=== PATIENT | female | born 1965 | race Caucasian/White ===

== ENCOUNTER 2018-12-15 12:17 | Emergency (ER) | payer OTHER, SELFPAY ==
[2018-12-15 12:17] VITALS: BP 179/48; PULSE 55; RESP 16; TEMP 36.8; O2SAT 97; BMI 38.5
--- NOTE | 2018-12-15 12:26 | CT_ITS ---
STUDY: CT ABDOMEN AND PELVIS WITH CONTRAST REASON FOR EXAM: Female, 53 years old. 2 week history of constipation and abdominal bloating. RADIATION DOSAGE (If Supplied By Facility): CTDIvol = ( 14.27 ) mGy, DLP = ( 1112.35 ) mGycm TECHNIQUE: Transaxial images were obtained from the dome of the diaphragm to the symphysis pubis with oral contrast. 100 IV/Oral Isovue 370 was administered. Sagittal and coronal images were reconstructed. Individualized dose optimization techniques were used for this CT. COMPARISON: None. FINDINGS: The visualized lung bases are unremarkable. The visualized portions of the heart are within normal limits. Normal liver. Normal gallbladder and extrahepatic biliary system. Normal spleen. Normal pancreas. Normal bilateral adrenal glands. Normal right kidney. Normal left kidney. Normal visualized stomach. Normal small intestine. Moderate amount of fecal material is seen in the colon. Scattered sigmoid diverticula. The appendix is visualized and appears normal. Normal abdominal aorta. Normal inferior vena cava. There is borderline retroperitoneal lymphadenopathy with enlarged nodes no greater than 10mm in the short axis diameter. Normal urinary bladder. Enlarged fibroid uterus. Small bilateral benign-appearing inguinal lymph nodes. Normal abdominal wall. Normal osseous structures. CT/Abdomen/Pelvis WITH Contrast IMPRESSION: Enlarged fibroid uterus. Moderate amount of fecal material is seen in the colon. Electronically Signed: Noe Lainez, at 14:38 EDT , Service support ,
--- NOTE | 2018-12-15 12:30 | ED.DCSUM_ITS ---
- ER Visit Summary Date of Service: 12/15/18 Chief Complaint: Constipation History of Present Illness: The patient is a 53 F presents to the emergency department constipation. The patient states she has not had a bowel movement about 2 weeks. She states that her stool was hard last time she moved her robert ls. She has tried MiraLAX and magnesium citrate. She denies any current pain. She states she gets the urge to move her bowels, and will get some cramping. She is noticed no blood. She had no prior surgeries on her abdomen. She is otherwise been in her normal state of health. Physical Examination: Vital signs reviewed General: Well-nourished, well-developed Head: Normocephalic, atraumatic Eyes: Pupils equal and reactive, extraocular muscles intact Neck, supple, no lymphadenopathy Heart: Regular rate and rhythm Respiratory: No distress, clear bilaterally Abdomen: Soft, nontender, nondistended, no peritoneal signs Back: Nontender Extremities: Nontender, no edema, no cords Skin: Normal color no rash Neuro: Alert and oriented, no focal or lateralizing deficits Test Results: [] Emergency Department Course and Treatment: The patient really has no significant abdominal tenderness. However, given her symptoms I did want to rule out dangerous intra-abdominal process. Screening labs show anemia which is mild. Otherwise labs are unremarkable. CT shows large stool burden, along with fibroid uterus, but no acute intra-abdominal process conversation with the patient. She was given a soapsuds enema. She had significant results and was feeling markedly improved. She will continue her MiraLAX. I will add Colace. At this time, I do feel that she is safe for outpatient follow-up. The patient is comfortable with this plan of care. Treatment Plan: [] Disposition: Discharge Impression: 1. Constipation This note was generated with Ingogoation software. It may contain incorrect words, spelling, and punctuation that were not noted in review of the chart prior to signing ED Disposition - Plan for ED Patient: Instructions: ED Constipation Prescriptions: Docusate Sodium [Colace] 100 mg PO DAILY #20 cap Referrals: [facility] Doctor,Out of [NON-STAFF] -
[2018-12-15] MEDS: 0.9% Normal Saline 1,000 ML 1000 ML IV (12:42)
[2018-12-15 12:46] LABS: Mucous, Urine 0 SEEN /hpf (<or=2+); Red Blood Cells-Urine 0 SEEN /hpf (0-5)
[2018-12-15 12:49] LABS: Color, Urine Yellow (Yellow); Glucose, Dipstick Normal (Normal); Ketone-Dipstick Negative (Negative); Leukocyte Esterase-Dipstick Negative /ul (Negative); Nitrite-Dipstick Negative (Negative); Occult Blood-Urine Negative /ul (Negative); Protein-Dipstick Negative (Negative); Urine Bilirubin Dipstick Negative (Negative); Urine Clarity Clear (Clear); Urine Urobilinogen Normal (Normal)
[2018-12-15 12:50] LABS: Absolute Lymphocyte Count 2.25 X10^3/ul (0.83-4.51); Absolute Neutrophil Count 2.2 X10^3/uL (2.0-7.7); Basophil# 0.09 X10^3/uL; Basophil% 1.7 % (0-1); Eosinophil# 0.07 X10^3/uL; Eosinophils% 1.3 % (0-5); Hematocrit 32.4 % (37-47); Hemoglobin 10.2 g/dl (12.0-15.0); Lymphocyte # 2.25 X10^3/ul (4.0); Lymphocyte % 43.4 % (19-41); Mean Corp Hgb Conc 31.5 g/gl (32-36); Mean Corpuscular Hgb 24.8 pg (27.0-32.0); Mean Corpuscular Volume 78.8 fL (81-99); Monocyte# 0.56 X10^3/uL; Monocyte% 10.8 % (0-10); Neutrophil # 2.22 X10^3/uL (2.7-7.7); Neutrophil % 42.8 % (47-70); POSITIVE COUNT NO; POSITIVE DIFFERENTIAL NO; POSITIVE MORPHOLOGY NO; Platelet Count 220 K/mm3 (150-450); RBC Distribution Width CV 15.5 % (11.6-14.6); RBC Distribution Width SD 44.5 fl (35.1-43.9); Red Blood Count 4.11 M/mm3 (4.2-5.4); White Blood Count 5.2 K/mm3 (4.4-11.0)
[2018-12-15 12:58] LABS: White Blood Cells 0-5 SEEN /hpf (0-5)
[2018-12-15 12:59] LABS: Bacteria RARE /hpf (None Seen); Squamous Epithelial Cells - UA 5-10 SEEN /hpf (5-10)
[2018-12-15 13:02] LABS: ALB/GLOB Ratio 1.1 RATIO (0.9-2.4); AST(SGOT) 13 U/L (15-37); Alanine Aminotransfer ALT/SGPT 18 U/L (13-56); Albumin, Serum 3.9 g/dL (3.2-5.0); Alkaline Phosphatase 80 U/L (45-117); Anion Gap 6 (5-15); BUN 16 mg/dL (7-18); BUN/Creat Ratio 20.7 RATIO (10-20); Calcium,Total 8.9 mg/dL (8.5-10.1); Chloride 104 mmol/L (98-107); Creatinine, Serum 0.77 mg/dL (0.55-1.02); EST Glomerular Filtration Rate 82 mL/min (>60); Est Glom Filt Rate - Afr Amer 99 mL/min (>60); Estimated Creatinine Clearance 74.28 ml/min; Globulin 3.6 g/dL (2.2-4.2); Glucose 94 mg/dL (74-106); Protein, Total 7.5 g/dL (6.4-8.2); Sodium Level 139 mmol/L (136-145)
[2018-12-15 15:44] VITALS: RESP 18
== END 2018-12-15 15:50 | disposition home or self-care (01) ==
LOC: ED 13:09
PROVIDERS: Emergency Provider Emergency Medicine; Family Provider Family Medicine; PCP Family Medicine
DX: K59.00 Constipation, unspecified (principal); R10.9 Unspecified abdominal pain
CPT/HCPCS: 74177; 80053; 81001; 85025; 96360; 99285; J7030; Q9967; A4216

== ENCOUNTER → 2019-03-09 | Outpatient (CLI) | payer OTHER, SELFPAY ==
--- NOTE | 2019-03-09 07:19 | MRI_ITS ---
STUDY: MRI RIGHT KNEE REASON FOR EXAM: Female, 54 years old. Right knee sprain. Medial pain. TECHNIQUE: Standardized fat and water weighted pulse sequences were obtained in all 3 orthogonal planes. COMPARISON: None. FINDINGS: Grade 2 cartilage loss at the patellofemoral articulation. Lateral compartment articular cartilage preserved. Medial compartment grade 4 cartilage loss. No acute fracture line. No dislocation. No cortical destruction. Medial meniscal degeneration without discrete tear. Lateral meniscus intact. Low-grade medial collateral ligament sprain with fluid between the superficial and deep fibers. Small volume joint effusion. Short medial patellofemoral plica. Tiny collapsed popliteal cyst. Mild soft tissue swelling. Deep infrapatellar bursitis. Redundant suprapatellar plica. Normal distal semimembranosus, gracilis and semitendinosus tendons. Normal proximal tibiofibular articulation. Normal lateral collateral (fibular) ligament. Normal popliteus tendon. Normal biceps femoris tendon. Intact anterior cruciate ligament (ACL). Intact posterior cruciate ligament (PCL). Normal medial and lateral patellar retinaculum. Intact quadriceps tendon. Intact patellar tendon. Normal Hoffa's fat pad. MRI/Lower Ext Joint Only (Routine) IMPRESSION: Low-grade MCL sprain without tear Medial compartment severe cartilage loss Patellofemoral articulation mild cartilage loss Medial meniscal degeneration without tear Deep infrapatellar bursitis Small joint effusion, tiny collapsed popliteal cyst and mild soft tissue swelling Electronically Signed: Reilly Baumann DO at 8:36 EDT Tel , Service support ,
== END | disposition home or self-care (01) ==
PROVIDERS: Family Provider Family Medicine; PCP Family Medicine; Referring Provider Emergency Medicine; Visit Provider Emergency Medicine
DX: S83.91XA Sprain of unspecified site of right knee, initial encounter (principal)
CPT/HCPCS: 73721

== ENCOUNTER 2021-10-26 10:49 | Day surgery (SDC) | payer OTHER, SELFPAY ==
--- NOTE | 2021-10-25 09:21 | PCM.HP.BLA ---
History and Physical Date of Admission: 10/26/21 HPI: The patient is a 56 year old female presenting for pre-operative visit. She is scheduled for hysteroscopy D&C with possible polypetom, for AUB on 10/26/21. Procedure discussed along with risks, benefits and complications. Other alternatives discussed for management. Consent form signed? Yes. ? ? PAST MEDICAL HISTORY PAST MEDICAL HISTORY Diagnosis Date ? Carcinoma in situ of cervix uteri 1991 ? Dysplasia of cervix, unspecified 1985 ? Excessive or frequent menstruation ? ? Heavy periods ? Hyperthyroidism ? ? Melanoma of left posterior calf (HCC) ? ? MRSA (methicillin resistant staph aureus) culture positive ? ? Obesity (BMI 35.0-39.9 without comorbidity) ? ? Seasonal allergies ? ? Snoring ? ? ? PAST SURGICAL HISTORY PAST SURGICAL HISTORY Procedure Laterality Date ? COLONOSCOPY FLX DX W/COLLJ SPEC WHEN PFRMD ? 03/12/2016 ? repeat 10 yrs ? CONIZATION CERVIX W/WO D&C RPR ELTRD EXC ? 1991 ? LEEP-Cervix FOR CIS ? LYMPH NODE FINE NEEDLE ASPIRATION ? ? ? right groin ? SKIN BX, 1 LESION Right ? ? right calf melanoma ? TONSILLECTOMY PRIMARY/SECONDARY <AGE 12 ? ? ? Tonsillectomy ? ? ? CURRENT MEDICATIONS Current Outpatient Medications Medication Sig Dispense Refill ? levothyroxine (SYNTHROID) 50 mcg tablet Take 1 tablet by mouth once daily. Take on empty stomach. For thyroid. 90 tablet 3 ? ferrous sulfate 325 mg (65 mg iron) tablet Take 1 tablet by mouth daily with breakfast. ? ? ? fluticasone propionate (FLONASE NASAL) Use in the nose. ? ? ? cetirizine HCl (ZYRTEC ORAL) Take by mouth. ? ? ? IBUPROFEN 600 MG TAB Take one(1) tablet every six(6) hours as needed for pain. ? 0 ? OTC NUTRITIONAL SUPPLEMENT Multi-Vitamin, Take one(1) tablet daily. ? 0 ? No current facility-administered medications for this visit. ? ? ALLERGIES: Hayfever [Homeopathic Products] ? PERSONAL HISTORY: SOCIAL HISTORY Social History ? Tobacco Use ? Smoking status: Never Smoker ? Smokeless tobacco: Never Used Vaping Use ? Vaping Use: Never used Substance Use Topics ? Alcohol use: Yes ? ? Comment: rarely ? Drug use: No ? FAMILY HISTORY: FAMILY HISTORY FAMILY HISTORY Problem Relation Age of Onset ? Cancer Mother ? ? lung ? Heart Father ? ? Heart Maternal Aunt ? ? pacemaker ? ? REVIEW OF SYMPTOMS: GENERAL: denies fevers or chills ENDOCRINOLOGY: has not been on steroids Cardiology : denies palpitations or chest pain Respiratory: denies SOB or cough Hematology: denies history of prolonged bleeding or easy bruising or VTE Allergy: Denies history of personal or family history of allergy to anesthesia ? PHYSICAL EXAMINATION: ? VITALS: Blood pressure 136/74, height 5' 5 (1.651 m), weight 250 lb (113.4 kg), last menstrual period 08/15/2021. ? GENERAL: The patient is well nourished, well hydrated in no acute distress. , The patient is oriented to time, place, and person. NECK: Supple. No lynphadenopathy, normal thyroid, no thyromegaly. LUNGS: Clear to auscultation bilaterally. no wheezes, rhonchi or rales HEART: Regular rate and rhythm, Normal heart sounds and No murmurs or gallops ? IMPRESSION: AUB, possible endometrial polyp ? PLAN: The risks/benefits/alternatives and personal involved for the planned hsyteroscopy D&C with polyp resection were reviewed with the patient. Her questions were answered to her satisfaction and she desires to proceed. Consent was signed. I reviewed with her postop instructions and expectations. ? ? I have reviewed and updated past medical and surgical history, medications and allergies Assessment & Plan Assessment/Plan (1) Abnormal uterine bleeding (AUB):
[2021-10-26] VITALS (8 sets, daily range): BP systolic 101–124; BP diastolic 52–70; PULSE 45–62; RESP 16–18; TEMP 35.5–36.6; O2SAT 94–100; BMI 40.9
[2021-10-26 11:26] LABS: Hematocrit 35.6 % (37-47); Hemoglobin 11.4 g/dL (12.0-15.0); Mean Corpuscular Hgb 27.6 pg (27.0-32.0); Mean Corpuscular Volume 86.2 fL (81-99); Mean Platelet Vol. 9.3 fl (6.2-12.0); Platelet Count 228 K/mm3 (150-450); RBC Distribution Width CV 13.1 % (11.6-14.6); RBC Distribution Width SD 41.1 fl (35.1-43.9); Red Blood Count 4.13 M/mm3 (4.2-5.4); White Blood Count 4.8 K/mm3 (4.4-11.0)
[2021-10-26 11:29] LABS: Internal QC Validated? YES +Cl - CLEAR BKGD; Pregnancy, Urine Negative Negative
[2021-10-26] MEDS: Lactated Ringers 1,000 ML 15 ML IV (11:33)
[2021-10-26] MEDS: Acetaminophen 500 MG Tablet 1000 MG PO (11:34)
[2021-10-26] MEDS: Ketorolac 30 MG/ML Syringe IV (11:34)
[2021-10-26 12:15] LABS: ALB/GLOB Ratio 1.1 RATIO (0.9-2.4); AST(SGOT) 19 U/L (15-37); Alanine Aminotransfer ALT/SGPT 29 U/L (13-56); Albumin, Serum 4.1 g/dL (3.2-5.0); Alkaline Phosphatase 80 U/L (45-117); Anion Gap 6 (5-15); BUN 18 mg/dL (7-18); BUN/Creat Ratio 23.9 RATIO (10-20); Calcium,Total 9.5 mg/dL (8.5-10.1); Chloride 106 mmol/L (98-107); Creatinine, Serum 0.75 mg/dL (0.55-1.02); EST Glomerular Filtration Rate 84 mL/min (>60); Est Glom Filt Rate - Afr Amer 101 mL/min (>60); Estimated Creatinine Clearance 73.57 ml/min; Globulin 3.6 g/dL (2.2-4.2); Glucose 97 mg/dL (74-106); Potassium 4.1 mmol/L (3.5-5.1); Protein, Total 7.7 g/dL (6.4-8.2); Sodium Level 140 mmol/L (136-145)
--- NOTE | 2021-10-26 12:20 | PCM.DC ---
Discharge Instructions Diet Discharge Diet: No restrictions Activity May resume sexual activity in: 2 weeks Lifting Restrictions: none Dressing / Incision Call your doctor if your incision/area has: Sudden Increased Bleeding and Foul Smelling Discharge Call your doctor if you observe: Fever of 101 or Higher and Using more than 1 pad per hour (for 2 hrs in a row) Follow Up Care Please Follow Up With: Estelita Ross MD When: 2-4 weeks or as needed. Call [phone] to make an appointment or with any concerns. Test Results: Test results from this visit will be discussed in further detail at your follow-up appointment, if applicable. Discharge Plan Admission Primary Reason for Your Visit: D&C Attending Provider: Estelita Ross Primary Care Provider: Kevin Swanson Discharge Orders/Prescriptions Prescriptions: Continued Zyrtec 10 MG capsule 1 tab PO DAILY RF: 0 levothyroxine 50 mcg Tablet 50 mcg PO DAILY RF: 0 ferrous sulfate [iron] 325 mg (65 mg iron) Tablet 325 mg PO DAILY RF: 0 multivitamin Capsule 1 cap PO DAILY RF: 0 fluticasone propionate [Flonase Allergy Relief] 50 mcg/actuation [place],Suspension 1 spray INTRANASAL PRN PRN (Reason: ALLERGIES) RF: 0 Referrals / Follow Up: Kevin Swanson MD [Primary Care Provider] - Disposition Disposition (needs filled in before D/C Order can be placed): Home, Self Care
--- NOTE | 2021-10-26 12:25 | EMB_PTH ---
PATIENT: SHAUNA [place] [facility] [id number] AGE/SX: 56/F ROOM: RE10/26/[address]: Dr. Estelita Ross MD : 1965 BED: DIS: 10/26/2021 SPEC #: [id number] RECD: 10/26/21 16:34 STATUS: KARINA REZA #: [id number] JOSH: 10/26/21 12:[address]: Estelita Ross DEPT: SURGICAL PATHOLOGY RECD BY: Tia Pierson ENTERED: 10/27/21 08:37 SP TYPE: ENDOM BX/C OTHR DR: Dr. Kevin Swanson MD Tissues: Endometrium, NOS Procedures: Surgery Specimen Level IV HEADER OPERATION: Hysteroscopy, D&C, Polypectomy PRE-OP DIAGNOSIS: Abnormal uterine bleeding TISSUE SUBMITTED: Endometrial curettings and polyps MICROSCOPIC DIAGNOSIS Endometrial curettings and polyps: Polypoid fragments of endometrial tissue, may represent fragments of endometrial polyp with simple cystic endometrial hyperplasia without atypia. Fragments of myometrial tissue. COMMENT Case has been reviewed in consultation with Dr. Lawson who concurs with the above diagnosis. IDC:AM MICROSCOPIC DESCRIPTION Slides are reviewed. GROSS DESCRIPTION Received in formalin is one container labeled with the patient name and designated endometrial curettings and polyps. The specimen consists of multiple irregular fragments of britton soft tissue measuring in aggregate 5 x 3 x 0.3 cm. The specimen is totally submitted in two cassettes. / SJ 10/30/2021 TC:5 CPT: 69708
--- NOTE | 2021-10-26 12:44 | PCM.OPRPT ---
Problems Associated Problem List Diagnoses (1) Abnormal uterine bleeding (AUB): (2) Endometrial polyp: Report of Operation Date of Procedure: 10/26/21 Pre-Operative Diagnosis: abnormal uterine bleeding Post-Operative Diagnosis: same + endometrial polyp Surgery/Procedure Performed:: Hysteroscopy D&C with polyp resection Description of Surgical Findings:: normal cervix and vagina. Uterus w/ endometrial polyp at fundus and some submucous fibroids Surgeon: Estelita Ross manager transportation planning: None Type of Anesthesia: MAC Anesthesiologist: Sanya Espinosa Special Medications: none Specimen's removed: endometrial polyp and curettings Drains: none Estimated Blood Loss (mL): 10 Fluids Replaced: 400 Description of Procedure: The patient was taken to the OR where she was prepped and draped in dorsal lithotomy position. The weighted speculum was placed in the vagina and the anterior lip of the cervix was grasped with a single-tooth tenaculum. The cervix was dilated serially with Hegar dilators. The Smphion hysteroscope was placed into the uterine cavity and the above findings were noted. Bilateral tubal ostia [were] identified. The SYmphion resectio device was inserted and readied. The polyp was resected, a visual curettage of the endometrium was performed. Partial resection of the submucosal is fibroids was performed to make the uterine cavity appeared more normal. 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 The instruments were removed from the vagina. The specimen was handed off and sent to pathology. All sponge and needle counts were correct. Vaginal sweep was performed by me. The patient was awakened and taken to the recovery room in stable condition. Hysteroscopic fluid deficit was calculated to be 450 cc of normal saline Grafts/Implants Used: none Procedure Start Time: 12:36 Procedure Stop Time: 12:43 Complications none Admit VTE Documentation VTE Present on Admission: No VTE Mechan Device Prophylaxis: SCD's VTE Pharm Prophylaxis ordered?: No Reason prophylaxis not ordered:: Procedure Not Indicated
== END 2021-10-26 13:40 | disposition home or self-care (01) ==
LOC: SDC 10:54 → AC 10:55
PROVIDERS: Anesthesiology; PCP Family Medicine; Referring Provider Obstetrics & Gynecology; Visit Provider Obstetrics & Gynecology
PROC: 0UB98ZZ Excision of Uterus, Via Natural or Artificial Opening Endoscopic (ICD-10-PCS; CPT 58558; principal; 2021-10-26 12:10)
DX: N85.01 Benign endometrial hyperplasia (principal); Z68.41 Body mass index [BMI] 40.0-44.9, adult; C80.1 Malignant (primary) neoplasm, unspecified; Q51.3 Bicornate uterus; D25.0 Submucous leiomyoma of uterus; N93.9 Abnormal uterine and vaginal bleeding, unspecified; E07.9 Disorder of thyroid, unspecified; E61.1 Iron deficiency; E66.9 Obesity, unspecified; J30.2 Other seasonal allergic rhinitis; Z86.16 Personal history of COVID-19; Z79.899 Other long term (current) drug therapy
CPT/HCPCS: 58558; 00952; 80053; 81025; 85027; 86850; 86900; 86901; 88305; J7120; J2405

== ENCOUNTER → 2021-11-08 | Outpatient (CLI) | payer OTHER, SELFPAY ==
--- NOTE | 2021-11-08 09:00 | PET_ITS ---
STUDY: PET/CT STUDY REASON FOR EXAM: Female, 56 years old. MELANOMA RADIATION DOSAGE (If Supplied By Facility): CTDIvol = ( ) mGy, DLP = ( ) mGycm. Individualized dose optimization techniques were used for this CT.? TECHNIQUE: Patient''s blood GLUCOSE level measured at 109, was injected with 12.7 mCi of F-18 FDG. Multiplanar PET study obtained along with noncontrasted CT COMPARISON: No recent studies FINDINGS: No abnormal GLUCOSE metabolism is identified on current study to suspect a metabolically active neoplastic process. There is physiologic activity noted within the brain parenchyma, salivary glands, heart, liver, spleen, GI and systems. Noncontrasted CT scan shows no abnormality within the brain parenchyma. No suspicious adenopathy within the soft tissues of the neck, no airway narrowing or deviation. Lung thomas are free of a superimposed process, no suspicious noncalcified mass or nodule noted. No suspicious solid organomegaly, no abnormal mesenteric or retroperitoneal adenopathy. Bony structures show degenerative change PET/PET/CT Tumor Base -Thigh Init IMPRESSION: Negative study, no suspicious increased GLUCOSE metabolism to suspect metabolically active neoplastic process Electronically Signed: Emiliano Miller MD at 16:39 EDT ,
== END | disposition home or self-care (01) ==
LOC: ONC 08:44
PROVIDERS: PCP Family Medicine; Referring Provider Internal Medicine Hematology & Oncology; Visit Provider Internal Medicine Hematology & Oncology
DX: C43.9 Malignant melanoma of skin, unspecified (principal); C77.4 Secondary and unspecified malignant neoplasm of inguinal and lower limb lymph nodes
CPT/HCPCS: 78815; A9588

== ENCOUNTER → 2021-12-18 | Outpatient (CLI) | payer OTHER, SELFPAY ==
[2021-12-18 14:06] LABS: ALB/GLOB Ratio 1.2 RATIO (0.9-2.4); AST(SGOT) 18 U/L (15-37); Alanine Aminotransfer ALT/SGPT 30 U/L (13-56); Albumin, Serum 4.1 g/dL (3.2-5.0); Alkaline Phosphatase 84 U/L (45-117); Anion Gap 7 (5-15); BUN 16 mg/dL (7-18); BUN/Creat Ratio 20.1 RATIO (10-20); Calcium,Total 9.3 mg/dL (8.5-10.1); Chloride 107 mmol/L (98-107); EST Glomerular Filtration Rate 79 mL/min (>60); Est Glom Filt Rate - Afr Amer 95 mL/min (>60); Globulin 3.4 g/dL (2.2-4.2); Glucose 101 mg/dL (74-106); Potassium 3.9 mmol/L (3.5-5.1); Protein, Total 7.5 g/dL (6.4-8.2); Sodium Level 140 mmol/L (136-145)
== END | disposition home or self-care (01) ==
PROVIDERS: PCP Family Medicine; Referring Provider Internal Medicine Hematology & Oncology; Visit Provider Internal Medicine Hematology & Oncology
DX: C43.71 Malignant melanoma of right lower limb, including hip (principal); C77.4 Secondary and unspecified malignant neoplasm of inguinal and lower limb lymph nodes
CPT/HCPCS: 80053

== ENCOUNTER 2022-04-10 10:21 | Inpatient (IN) | payer OTHER, SELFPAY ==
[2022-04-10 10:23] VITALS: BP 132/87; PULSE 97; RESP 18; TEMP 36.6; O2SAT 100; BMI 38.1
--- NOTE | 2022-04-10 10:44 | EDS_ITS ---
HPI HPI - GI History of Present Illness Chief Complaint: Abd Pain Informant: patient Abdominal Pain/Flank Pain Onset: Weeks (1) Context: Gradual Onset Timing: Intermittent Quality: Sharp Location: Diffuse Worsened by: Nothing Relieved by: Nothing Nausea/Vomiting/Emesis GI Symptom: Positive for Nausea and Vomiting Onset: Weeks (1) Quality: Positive for Nonbilious; Negative for Blood streaks, Coffee ground or Hematemesis Diarrhea/Melena/Hematochezia GI Symptom: Negative for Diarrhea, Melena or Hematochezia Associated Symptoms Associated Symptoms: Negative for Dysuria, Frequency or Hematuria Narrative Narrative: Patient Zentz with nausea and vomiting that has been constant for the past week. Patient states she is vomiting up stomach contents. Patient denies any hematemesis or coffee-ground emesis. Patient denies any diarrhea, melena, or he matochezia. Patient denies any dysuria, frequency, or hematuria. Patient admits to some diffuse abdominal pain. Patient states it comes and goes. Patient states it is sharp. Patient states nothing makes it better and nothing makes it worse. Patient states she saw her primary care physician yesterday who prescribed nausea medication. Patient states that she is still unable to keep anything down even with that. Patient is concerned about dehydration. [facility] Medical History Alcohol use Cancer Injury of back Low iron Non-smoker Thyroid disease Home Medications cetirizine 10 mg capsule (Zyrtec) 1 tab PO DAILY 12/15/18 [History Last Taken Unknown] ferrous sulfate 325 mg (65 mg iron) tablet (iron) 325 mg PO DAILY 10/24/21 [History Last Taken Unknown] fluticasone propionate 50 mcg/actuation nasal spray,suspension (Flonase Allergy Relief) 1 spray intranasal PRN PRN ALLERGIES 10/24/21 [History Last Taken Unknown] levothyroxine 50 mcg tablet 50 mcg PO DAILY 10/24/21 [History Last Taken 10/26/21] multivitamin 1 cap PO DAILY 10/24/21 [History Last Taken Unknown] Allergy/AdvReac Type Severity Reaction Status Date / Time Environmental Allergies: AdvReac Other Verified 04/10/22 10:25 Uncoded [hay fever] Surgical History Hx of colonoscopy Hx of melanoma excision Hx of tonsillectomy Social History Smoking Status: Never smoker ROS ROS ED Constitutional Constitutional ED: Reports fever(s); Denies chills Eyes Eyes: Denies blurry vision or change in vision ENT ENT ED: Reports rhinorrhea; Denies sore throat Cardiovascular Cardiovascular: Denies chest pain or palpitations Respiratory/Chest Respiratory/Chest: Denies cough or dyspnea Gastrointestinal Gastrointestinal: Reports abdominal pain, nausea and vomiting Genitourinary Genitourinary ED: Denies dysuria or hematuria Musculoskeletal Musculoskeletal: Reports back pain; Denies neck pain Integumentary Denies abscess or rash Neurologic Neurologic: Denies headache(s) or weakness Allergic/Immunologic Allergic/Immunologic ED: Denies mouth swelling or urticaria EXAM Physical Exam Const Vital Signs: 04/10/22 10:23 Temperature 98 F Temperature Source Temporal Pulse Rate 97 Respiratory Rate 18 Blood Pressure 132/87 H Blood Pressure Mean 102 Pulse Ox 100 Oxygen Delivery Method Room Air Positive well nourished and well developed General Appearance ED: well developed HEENT Reports moist mucous membranes Neck supple and no JVD Resp normal respiratory effort and clear to auscultation bilaterally Cardio regular rate, regular rhythm and no murmurs GI normal to inspection, nondistended, normoactive bowel sounds and non-tender Palpation: soft; Negative for tender, guarding or rebound tenderness present Extremity normal to inspection General Extremety ED: Negative for edema or tenderness General Extremity: Negative for edema Neuro oriented x3, CN's II-XII intact bilaterally and no sensory deficits noted Sensorium / Orientation: alert Motor Exam: strength 5/5 throughout Psych mental status grossly normal Skin no rashes or lesions noted MDM MDM MDM Narrative Medical decision making narrative: Patient was given IV fluids and Zofran. CBC was within normal limits. Comprehensive metabolic profile showed a slightly elevated creatinine of 1.3 and a BUN of 22. Glucose was normal. Lipase was elevated at 4203. Patient was advised of her findings. Case was discussed with the hospitalist. He will admit the patient to his service. CT scan of the abdomen pelvis was ordered to rule out any pseudocyst of her pancreas. Patient declines any pain medication at this time. Patient understands and is agreeable with the plan. All questions were answered. Lab Data Attestation: I reviewed the patient's lab results. Labs: Laboratory Results - last 24 hr 04/10/22 04/10/22 10:55 10:55 WBC 7.5 RBC 4.75 Hgb 13.6 Hct 39.8 MCV 83.8 MCH 28.6 MCHC 34.2 RDW Std Deviation 44.1 H RDW Coeff of Shailesh 14.6 Plt Count 222 MPV 9.2 Immature Gran % (Auto) 0.300 Neut % (Auto) 50.7 Lymph % (Auto) 34.0 [place] % (Auto) 12.6 H Eos % (Auto) 1.5 Baso % (Auto) 0.9 Absolute Neuts (auto) 3.8 Absolute Lymphs (auto) 2.53 Nucleated RBC % 0 Sodium 132 L Potassium 4.6 Chloride 100 Carbon Dioxide 25.0 Anion Gap 7 BUN 22 H Creatinine 1.30 H Estim Creat Clear Calc 41.93 Est GFR (MDRD) Af Amer 54 L Est GFR (MDRD) Non-Af 45 L BUN/Creatinine Ratio 16.9 Glucose 110 H Calcium 9.9 Total Bilirubin 1.00 AST 23 ALT 40 Alkaline Phosphatase 93 Total Protein 8.2 Albumin 4.1 Globulin 4.1 Albumin/Globulin Ratio 1.0 Lipase 4203 H Discharge Plan Triage Chief Complaint: Abd Pain ED Provider: Reilly Amin Dx/Rx/DC Orders Clinical Impression: Acute pancreatitis, Abdominal pain, Dehydration Primary Care Provider: Kevin Swanson Disposition Disposition: [facility]
[2022-04-10] MEDS: 0.9% Normal Saline 1,000 ML 1000 ML IV (10:56)
[2022-04-10] MEDS: Ondansetron 4 MG/2 ML Vial IV (10:57)
[2022-04-10 11:07] LABS: Absolute Lymphocyte Count 2.53 X10^3/uL (0.83-4.51); Absolute Neutrophil Count 3.8 X10^3/uL (2.0-7.7); Basophil# 0.07 X10^3/uL; Basophil% 0.9 % (0-1); Eosinophil# 0.11 X10^3/uL; Eosinophils% 1.5 % (0-5); Hematocrit 39.8 % (37-47); Hemoglobin 13.6 g/dL (12.0-15.0); Lymphocyte # 2.53 X10^3/ul (0.83-4.51); Mean Corp Hgb Conc 34.2 g/dL (32-36); Mean Corpuscular Hgb 28.6 pg (27.0-32.0); Mean Corpuscular Volume 83.8 fL (81-99); Mean Platelet Vol. 9.2 fl (6.2-12.0); Monocyte# 0.94 X10^3/uL; Monocyte% 12.6 % (0-10); NRBC Flagged by Analyzer 0 % (0-5); Neutrophil # 3.78 X10^3/uL (2.7-7.7); Neutrophil % 50.7 % (47-70); Platelet Count 222 K/mm3 (150-450); RBC Distribution Width CV 14.6 % (11.6-14.6); RBC Distribution Width SD 44.1 fl (35.1-43.9); Red Blood Count 4.75 M/mm3 (4.2-5.4); White Blood Count 7.5 K/mm3 (4.4-11.0)
[2022-04-10 11:26] LABS: AST(SGOT) 23 U/L (15-37); Alanine Aminotransfer ALT/SGPT 40 U/L (13-56); Albumin, Serum 4.1 g/dL (3.2-5.0); Alkaline Phosphatase 93 U/L (45-117); Anion Gap 7 (5-15); BUN 22 mg/dL (7-18); BUN/Creat Ratio 16.9 RATIO (10-20); Calcium,Total 9.9 mg/dL (8.5-10.1); Chloride 100 mmol/L (98-107); EST Glomerular Filtration Rate 45 mL/min (>60); Est Glom Filt Rate - Afr Amer 54 mL/min (>60); Estimated Creatinine Clearance 41.93 ml/min; Globulin 4.1 g/dL (2.2-4.2); Glucose 110 mg/dL (74-106); Lipase 4203 U/L (73-393); Potassium 4.6 mmol/L (3.5-5.1); Protein, Total 8.2 g/dL (6.4-8.2); Sodium Level 132 mmol/L (136-145)
--- NOTE | 2022-04-10 12:03 | NURSING ---
DR YUMIKO LÓPEZ
--- NOTE | 2022-04-10 12:04 | PCM.HP.STD ---
HPI - General General Date of Admission: 04/10/22 Date of Service: 04/10/22 Chief Complaint: Nausea vomiting mild abdominal aches/discomfort for 1 week HPI Narrative SHAUNA DO, is a 57 F came to ER with persistent nausea vomiting and mild abdominal aches for 1 week. It is insidious onset without any precipitating cause. Usually she vomits 2-3 times mainly gastric content with nausea and loss of appetite. She has mild nonspecific generalized predominantly lower quadrants aches and discomfort. She states is not pain. Not able to describe any aggravating or relieving factor. She is on Opdivo IV infusion every 2 weeks started in December 2021 after melanoma resection by oncologist Dr. De Souza. She not had much problem except mild rash which got better with prednisone tablet and steroid cream. She is due for next Opdivo today but withheld therefore last dose was 2 weeks ago. Patient denies any fever or chills. She states her bowel is solid and formed but not regular. She denies diarrhea. In ED, vitals in acceptable limit. Initial blood work shows hyponatremia, lipase very high, 4203 units. Patient given IV fluid normal saline bolus and CT abdomen ordered by ER physician [facility] Medical History Alcohol use Cancer Injury of back Low iron Non-smoker Thyroid disease Home Medications cetirizine 10 mg capsule (Zyrtec) 1 tab PO DAILY 12/15/18 [History Last Taken Unknown] ferrous sulfate 325 mg (65 mg iron) tablet (iron) 325 mg PO DAILY 10/24/21 [History Last Taken Unknown] fluticasone propionate 50 mcg/actuation nasal spray,suspension (Flonase Allergy Relief) 1 spray intranasal PRN PRN ALLERGIES 10/24/21 [History Last Taken Unknown] levothyroxine 50 mcg tablet 50 mcg PO DAILY 10/24/21 [History Last Taken 10/26/21] multivitamin 1 cap PO DAILY 10/24/21 [History Last Taken Unknown] Allergy/AdvReac Type Severity Reaction Status Date / Time Environmental Allergies: AdvReac Other Verified 04/10/22 10:25 Uncoded [hay fever] Surgical History Hx of colonoscopy Hx of melanoma excision Hx of tonsillectomy Social History Smoking Status: Never smoker ROS ROS Narrative Constitutional: Reports fatigue and weakness. No fever HEENT: Reports systems reviewed and no addt'l complaints, except as documented Respiratory/Chest: Denies chest pain, shortness of breath at rest or with exertion Gastrointestinal: As described in HPI Genitourinary: Denies burning urination or new urinary tract symptoms Musculoskeletal: Denies specific joint pain and limited range of motion Neurologic: Denies seizure-like activity. No neurological deficit or stroke skin: History of rash got better with prednisone Endocrinology: Reports systems reviewed and no addt'l complaints, except as documented Hematologic/Lymphatic: Reports systems reviewed and no addt'l complaints, except as documented Rest 14 ROS are negative except as mentioned in HPI Vital Signs Vital Signs Vital Signs: 04/10/22 10:23 Temperature 98 F Temperature Source Temporal Pulse Rate 97 Respiratory Rate 18 Blood Pressure 132/87 H Blood Pressure Mean 102 Pulse Ox 100 Oxygen Delivery Method Room Air Weight Weight: 229 lb 4.492 oz Body Mass Index (BMI) 38.1 Physical Exam Narrative Physical exam General: Alert, Oriented x3, Cooperative HEENT: Atraumatic, PERRLA, EOMI, Normocephalic Oral: Oral mucosa dry. No Gingival or Mucosal Lesions/ Ulcerations Neck: Supple, No JVD, Negative Carotid Bruits Lungs: Air entry equal in bilateral lung bases. No crepitation/rhonchi Cardiovascular: Regular rate, Regular Rhythm, Normal S1, Normal S2, No murmurs Abdomen: Soft, nontender, bowel Sounds Present, Non-Distended. No palpable mass : No renal angle tenderness. No suprapubic tenderness. Extremities: No edema, Capillary Refill Less than 3 Seconds Skin: No rashes, No breakdown. Very faint scar of melanoma on his extremities and right calf Musculoskeletal: No Tenderness to Palpation of Joints or Extremities. ROM intact. Neurological: Cranial nerves II-XII grossly intact, DTR 2+/4 and Symmetrical, Neuro grossly intact Psych/Mental Status: Normal Affect, Appropriate. Results Lab / Micro Data Result Diagrams: 04/10/22 10:55 04/10/22 10:55 Labs: Laboratory Results - last 24 hr 04/10/22 10:55: WBC 7.5, RBC 4.75, Hgb 13.6, Hct 39.8, MCV 83.8, MCH 28.6, MCHC 34.2, RDW Std Deviation 44.1 H, RDW Coeff of Shailesh 14.6, Plt Count 222, MPV 9.2, Immature Gran % (Auto) 0.300, Neut % (Auto) 50.7, Lymph % (Auto) 34.0, [place] % (Auto) 12.6 H, Eos % (Auto) 1.5, Baso % (Auto) 0.9, Absolute Neuts (auto) 3.8, Absolute Lymphs (auto) 2.53, Nucleated RBC % 0 04/10/22 10:55: Sodium 132 L, Potassium 4.6, Chloride 100, Carbon Dioxide 25.0, Anion Gap 7, BUN 22 H, Creatinine 1.30 H, Estim Creat Clear Calc 41.93, Est GFR (MDRD) Af Amer 54 L, Est GFR (MDRD) Non-Af 45 L, BUN/Creatinine Ratio 16.9, Glucose 110 H, Calcium 9.9, Total Bilirubin 1.00, AST 23, ALT 40, Alkaline Phosphatase 93, Total Protein 8.2, Albumin 4.1, Globulin 4.1, Albumin/Globulin Ratio 1.0, Lipase 4203 H Assessment & Plan Assessment/Plan (1) Acute pancreatitis: PLAN: Plan This 57-year-old female came to ED for persistent nausea vomiting and mild abdominal discomfort for 1 week. 1. Acute pancreatitis exact etiology unclear. Lipase 4203: Patient is being admitted MedSurg floor. She denies chronic alcohol use. She denies previous history of severe abdominal pain which required ED visit or hospitalization. No previous history of ulcerative colitis, Crohn's disease IBS or diverticulitis, or chronic PUD. Had colonoscopy 5 to 6 years ago and was normal. IV fluid normal saline 150 mill per hour for 2 L and then reevaluate. Right upper quadrant sonogram ordered to rule out gallstones/gastritis. Liver chemistry normal. 2. Chronic iron-deficiency anemia: H&H 13.6/39.8. Platelet count normal. Continue iron supplement. 3. Hypothyroidism: On Synthroid. 4. History of melena s/p resection on Opdivo: Last infusion was 2 weeks ago and due for today. 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 Living will/advanced directive/end of life care: Patient does not have living will or advanced directive. She does not have designated power of mergers and acquisitions attorney for health. Her at the bedside is next of kin. After discussion of benefits/risks procedures involved with full code, DNR CC arrest and DNR CC, the patient and her opted for full code. Patient does want artificial life support including intubation, tube feed, ventilator and/chest compression, central venous catheter, vasopressor and DC shock if needed Total time spent in [id number] encounter in discussion of advanced directive 16 minutes. Laboratory Results 04/10/22 10:55: WBC 7.5, RBC 4.75, Hgb 13.6, Hct 39.8, MCV 83.8, MCH 28.6, MCHC 34.2, RDW Std Deviation 44.1 H, RDW Coeff of Shailesh 14.6, Plt Count 222, MPV 9.2, Immature Gran % (Auto) 0.300, Neut % (Auto) 50.7, Lymph % (Auto) 34.0, [place] % (Auto) 12.6 H, Eos % (Auto) 1.5, Baso % (Auto) 0.9, Absolute Neuts (auto) 3.8, Absolute Lymphs (auto) 2.53, Nucleated RBC % 0 04/10/22 10:55: Sodium 132 L, Potassium 4.6, Chloride 100, Carbon Dioxide 25.0, Anion Gap 7, BUN 22 H, Creatinine 1.30 H, Estim Creat Clear Calc 41.93, Est GFR (MDRD) Af Amer 54 L, Est GFR (MDRD) Non-Af 45 L, BUN/Creatinine Ratio 16.9, Glucose 110 H, Calcium 9.9, Total Bilirubin 1.00, AST 23, ALT 40, Alkaline Phosphatase 93, Total Protein 8.2, Albumin 4.1, Globulin 4.1, Albumin/Globulin Ratio 1.0, Lipase 4203 H Charges/Coding Visit Charges Inpatient E&M: 55050 Init Hosp L3 Procedures Hospitalists Procedures: 38768 Advncd Care Plan 30 Min
--- NOTE | 2022-04-10 12:06 | CT_ITS ---
STUDY: CT ABDOMEN AND PELVIS WITH CONTRAST REASON FOR EXAM: Female, 57 years old. Pancreatitis -- IV PO Contrast RADIATION DOSAGE (If Supplied By Facility): CTDIvol = ( 17.46 ) mGy, DLP = ( 1283.27 ) mGycm TECHNIQUE: Transaxial images were obtained from the dome of the diaphragm to the symphysis pubis with oral contrast. Oral and amp; IV Gastrografin and amp; 100mL Isovue-300 was administered. Sagittal and coronal images were reconstructed. Individualized dose optimization techniques were used for this CT. COMPARISON: None. FINDINGS: The visualized lung bases are unremarkable. The visualized portions of the heart are within normal limits. Normal liver. Normal gallbladder and extrahepatic biliary system. Normal spleen. Normal pancreas. Normal bilateral adrenal glands. Normal right kidney. Normal left kidney. Normal visualized stomach. Normal small intestine. Moderate amount of fecal material is seen in the colon. There is evidence of a circumferential wall thickening of the distal sigmoid colon as well as rectum suggestive of a focal colitis. The appendix is visualized and appears normal. Normal abdominal aorta. Normal inferior vena cava. Normal retroperitoneum. Normal urinary bladder. Normal abdominal wall. Normal osseous structures. CT/Abdomen/Pelvis WITH Contrast IMPRESSION: The findings suggestive of a colitis involving the rectosigmoid colon. Electronically Signed: Noe Lainez MD at 15:35 EDT ,
[2022-04-10 13:00] VITALS: BP 110/71; PULSE 67; RESP 17; TEMP 36.6; O2SAT 100
--- NOTE | 2022-04-10 13:29 | US_ITS ---
EXAM: US ABDOMEN LIMITED, RIGHT UPPER QUADRANT CLINICAL INDICATION: Nausea/ vomiting x 1 week TECHNIQUE: Real-time ultrasound of the right upper quadrant with image documentation. This report was created using [employer] report generation technology. COMPARISON: None. FINDINGS: LIVER: Liver measures 15.9 cm in length. There is normal echotexture. No intrahepatic biliary ductal dilation. GALLBLADDER: The gallbladder wall measures 2 mm. No shadowing gallstone. No pericholecystic fluid. Negative sonographic Wu''s sign. COMMON BILE DUCT: Common bile duct measures 7 mm. The proximal common bile duct is within normal limits for the patient''s age. PANCREAS: Pancreatic duct measures 2 mm. RIGHT KIDNEY: The right kidney measures 10.4 x 4.7 x 4.8 cm. Right renal cortex measures 1.5 cm. There is no hydronephrosis. No shadowing calculus. No focal lesion or perinephric collection is demonstrated. US/Abdomen Limited IMPRESSION: Mild dilatation of the common bile duct. No other abnormalities identified. If indicated further evaluation with ERCP or MRCP may be beneficial. Electronically Signed: Lamin Haywood MD at 20:30 EDT ,
[2022-04-10 13:30] VITALS: BMI 38.0
[2022-04-10 13:39] VITALS: BP 110/71; PULSE 67; RESP 17; TEMP 36.6; O2SAT 100
[2022-04-10 13:42] LABS: Bacteria 0 SEEN /hpf (None Seen); Mucous, Urine 0 SEEN /hpf (<or=2+); Red Blood Cells-Urine 0 SEEN /hpf (0-5); Squamous Epithelial Cells - UA 0 SEEN /hpf (5-10); White Blood Cells 0 SEEN /hpf (0-5)
[2022-04-10 13:43] LABS: Color, Urine Yellow (Yellow); Glucose, Dipstick Normal (Normal); Ketone-Dipstick Negative (Negative); Leukocyte Esterase-Dipstick 25 /ul (Negative); Nitrite-Dipstick Negative (Negative); Occult Blood-Urine Negative /ul (Negative); Protein-Dipstick Negative (Negative); Urine Bilirubin Dipstick Negative (Negative); Urine Clarity Clear (Clear); Urine Urobilinogen Normal (Normal)
[2022-04-10 14:20] VITALS: O2SAT 100
[2022-04-10] MEDS: 0.9% Normal Saline 1,000 ML 150 ML IV ×2 (15:48→22:38)
[2022-04-10 18:46] VITALS: BP 121/65; PULSE 76; RESP 17; TEMP 36.7; O2SAT 99
[2022-04-10 20:55] VITALS: BP 125/66; PULSE 67; RESP 16; TEMP 37.2; O2SAT 97
[2022-04-10] MEDS: Ferrous Sulfate 325 MG Tablet PO (20:57)
[2022-04-11 03:05] VITALS: BP 121/61; PULSE 65; RESP 18; TEMP 36.8; O2SAT 97
[2022-04-11] MEDS: Levothyroxine 100 MCG Tablet PO (05:05)
[2022-04-11 06:49] LABS: Absolute Lymphocyte Count 2.13 X10^3/uL (0.83-4.51); Absolute Neutrophil Count 3.8 X10^3/uL (2.0-7.7); Basophil# 0.06 X10^3/uL; Basophil% 0.9 % (0-1); Eosinophil# 0.09 X10^3/uL; Eosinophils% 1.3 % (0-5); Hematocrit 34.3 % (37-47); Hemoglobin 11.5 g/dL (12.0-15.0); Lymphocyte # 2.13 X10^3/ul (0.83-4.51); Lymphocyte % 30.6 % (19-41); Mean Corp Hgb Conc 33.5 g/dL (32-36); Mean Corpuscular Hgb 28.3 pg (27.0-32.0); Mean Corpuscular Volume 84.5 fL (81-99); Mean Platelet Vol. 9.4 fl (6.2-12.0); Monocyte# 0.84 X10^3/uL; Monocyte% 12.1 % (0-10); NRBC Flagged by Analyzer 0 % (0-5); Neutrophil # 3.82 X10^3/uL (2.7-7.7); Neutrophil % 54.8 % (47-70); Platelet Count 176 K/mm3 (150-450); RBC Distribution Width CV 14.7 % (11.6-14.6); Red Blood Count 4.06 M/mm3 (4.2-5.4)
[2022-04-11 07:54] VITALS: O2SAT 98
[2022-04-11 07:55] LABS: ALB/GLOB Ratio 1.1 RATIO (0.9-2.4); AST(SGOT) 19 U/L (15-37); Alanine Aminotransfer ALT/SGPT 32 U/L (13-56); Albumin, Serum 3.5 g/dL (3.2-5.0); Alkaline Phosphatase 80 U/L (45-117); Anion Gap 5 (5-15); BUN 15 mg/dL (7-18); BUN/Creat Ratio 13.4 RATIO (10-20); Calcium,Total 9.2 mg/dL (8.5-10.1); Chloride 104 mmol/L (98-107); Creatinine, Serum 1.12 mg/dL (0.55-1.02); EST Glomerular Filtration Rate 53 mL/min (>60); Est Glom Filt Rate - Afr Amer 64 mL/min (>60); Estimated Creatinine Clearance 48.67 ml/min; Globulin 3.2 g/dL (2.2-4.2); Glucose 100 mg/dL (74-106); Lipase 3966 U/L (73-393); Potassium 4.7 mmol/L (3.5-5.1); Protein, Total 6.7 g/dL (6.4-8.2); Sodium Level 135 mmol/L (136-145); T4 Free Direct 1.07 ng/dL (0.76-1.46)
[2022-04-11 09:14] VITALS: BP 124/67; PULSE 85; RESP 14; TEMP 37; O2SAT 96
[2022-04-11] MEDS: Enoxaparin 40 MG/0.4 ML Syringe SC (09:46)
[2022-04-11] MEDS: Bisacodyl 10 MG Suppository RC (10:21)
--- NOTE | 2022-04-11 12:07 | MRI_ITS ---
STUDY: MR MRCP AND ABDOMEN WITHOUT CONTRAST REASON FOR EXAM: Female, 57 years old. pancreatitis TECHNIQUE: Routine abdominal MR angiographic protocol was performed. 3D reconstructions were reviewed. Standard MRCP technique was utilized. STUDY: MR MRCP WITHOUT CONTRAST REASON FOR EXAM: Female, 57 years old. pancreatitis TECHNIQUE: Standard MRCP technique was utilized. COMPARISON: None. FINDINGS: Gall Bladder: Gallbladder is mildly distended. No evidence of cholelithiasis or gallbladder wall thickening gallbladder measures 7.68 x 4.11 x 4.2 cm. Cystic duct: Normal with no demonstrated fixed filling defect. Intrahepatic ducts: Normal visualized intrahepatic ducts with no demonstrated fixed filling defect, dilation or stricture. Common hepatic duct: Normal with no demonstrated fixed filling defect, dilation or stricture. Common bile duct: 0.82 cm. This is mildly dilated. The distal common duct tapers normally. There is no evidence of filling defect within the common duct. The dilatation of the common duct could be age related. Other etiology including distal common duct stricture, impacted occult or recently passed calculus or occult mass regional to the distal common duct cannot be excluded. Pancreatic duct: Normal with no demonstrated fixed filling defect, dilation or stricture. The unenhanced liver or spleen pancreas adrenals and kidneys are normal. The aorta is of normal caliber. MRI/MRCP Abdomen without Contrast IMPRESSION: Common duct is dilated to 0.82 cm. Mildly distended gallbladder. While these findings could be age related possibility of obstructing pathology regional to the distal common duct cannot be excluded. Differential diagnostic considerations detailed above. Electronically Signed: Renaldo Mullen MD, RM at 15:29 EDT ,
--- NOTE | 2022-04-11 13:10 | CASEMGMT ---
EMIGDIO BANEGAS [employer] MAKENZIE to room to meet with patient for initial transition planning/care coordination assessment. EMIGDIO BANEGAS introduced self and role at [facility]. Pt voices understanding and consents to assessment at this time. Pt resting in bed in no distress at this time. Pt is A/O at this time and answers all questions appropriately. Care providers, pharmacy, and demographics verified/updated at this time. PCP: Dr Swanson Specialists: Dr De Souza-oncology Preferred Pharmacy: [facility] [employer] Insurance: [employer] Prescription Benefit: Yes Living Will/HPOA: States does not have LW or HCPOA . Interested in more information but states does not want to talk with SW at this time to complete paperwork. Provided information on advanced directives and given AD packet. Pt also has Social Service rac card with number to call if chooses in the future to utilize [facility] social work for advanced directive completion. EMIGDIO BANEGAS informed her to ask for SW if she decides to have AD completed while @ [facility]. LNOK: , Michael. Son, Dom Living Arrangements: Lives w/ in 2-story home w/4 steps to enter. Denies difficulty w/stairs. Independent w/ADL's and IADL's. Transportation: Pt states drives self and states no transportation concerns at this time. also drives. DME: Pt has a pulse ox. Uses no other DME and denies needs. HHC/SNF: No hx of either. No needs identified. Pt wishes to return home and states has no concerns with going home at time of discharge. Pt states does not smoke and drinks very rarely. CM to follow for any discharge planning/needs. Pt voices no concerns/needs at this time. Advised pt to ask for CM if any questions/concerns/needs arise. Voices understanding. PLAN: Home Alie BUTLER RN, CM
--- NOTE | 2022-04-11 16:29 | PN.HOSP_ITS ---
Subjective Subjective Follow-up for lower abdominal pain, nausea. Patient tolerated full liquid. Objective Data Objective Data Vital Signs: Vital Signs Temp Pulse Resp BP Pulse Ox O2 Del Method 98.6 F 85 14 124/67 H 96 Room Air 04/11/22 09:14 04/11/22 09:14 04/11/22 09:14 04/11/22 09:14 04/11/22 09:14 04/11/22 09:49 Oxygen Delivery Method Room Air Weight: 229 lb 11.547 oz Body Mass Index (BMI) 38.0 Intake & Output: Intake and Output for Last 24 Hours 04/09/22 04/10/22 04/11/22 23:59 23:59 23:59 Intake Total 2392.5 / 2692.5 2310 / 2310 Balance 2392.5 / 2692.5 231 / 2310 Lab / Micro Data Result Diagrams: 04/11/22 06:20 04/11/22 06:20 Labs: Laboratory Results - last 24 hr 04/11/22 06:20: WBC 7.0, RBC 4.06 L, Hgb 11.5 L, Hct 34.3 L, MCV 84.5, MCH 28.3, MCHC 33.5, RDW Std Deviation 45.0 H, RDW Coeff of Shailesh 14.7 H, Plt Count 176, MPV 9.4, Immature Gran % (Auto) 0.300, Neut % (Auto) 54.8, Lymph % (Auto) 30.6, [place] % (Auto) 12.1 H, Eos % (Auto) 1.3, Baso % (Auto) 0.9, Absolute Neuts (auto) 3.8, Absolute Lymphs (auto) 2.13, Nucleated RBC % 0 04/11/22 06:20: Sodium 135 L, Potassium 4.7, Chloride 104, Carbon Dioxide 26.0, Anion Gap 5, BUN 15, Creatinine 1.12 H, Estim Creat Clear Calc 48.67, Est GFR (MDRD) Af Amer 64, Est GFR (MDRD) Non-Af 53 L, BUN/Creatinine Ratio 13.4, Glucose 100, Calcium 9.2, Total Bilirubin 0.80, AST 19, ALT 32, Alkaline Phosphatase 80, Total Protein 6.7, Albumin 3.5, Globulin 3.2, Albumin/Globulin Ratio 1.1, Lipase 3966 H, TSH 10.70 H, Free T4 1.07 Radiography Diagnostic Testing: Radiology Impression MRCP 04/11/22 12:07 IMPRESSION: Common duct is dilated to 0.82 cm. Mildly distended gallbladder. While these findings could be age related possibility of obstructing pathology regional to the distal common duct cannot be excluded. Differential diagnostic considerations detailed above. Physical Exam Narrative Physical exam General: Alert, Oriented x3, Cooperative HEENT: Atraumatic, PERRLA, EOMI, Normocephalic Oral: Oral mucosa moist. No Gingival or Mucosal Lesions/ Ulcerations Neck: Supple, No JVD, Negative Carotid Bruits Lungs: Air entry equal in bilateral lung bases. No crepitation/rhonchi Cardiovascular: Regular rate, Regular Rhythm, Normal S1, Normal S2, No murmurs Abdomen: Soft. Mild tenderness present on deep palpation in suprapubic pelvic region. bowel Sounds Present, Non-Distended. No palpable mass : No renal angle tenderness. No suprapubic tenderness. Extremities: No edema, Capillary Refill Less than 3 Seconds Skin: No rashes, No breakdown. Very faint scar of melanoma on his extremities and right calf Musculoskeletal: No Tenderness to Palpation of Joints or Extremities. ROM intact. Neurological: Cranial nerves II-XII grossly intact, DTR 2+/4 and Symmetrical, Neuro grossly intact Psych/Mental Status: Normal Affect, Appropriate. Assessment & Plan Assessment/Plan (1) Acute pancreatitis: PLAN: Plan This 57-year-old female came to ED for persistent nausea vomiting and mild abdominal discomfort for 1 week. 1. Acute pancreatitis exact etiology unclear. Lipase 4203: Patient is being admitted MedSurg floor. She denies chronic alcohol use. She denies previous history of severe abdominal pain which required ED visit or hospitalization. No previous history of ulcerative colitis, Crohn's disease IBS or diverticulitis, or chronic PUD. Had colonoscopy 5 to 6 years ago and was normal. IV fluid normal saline 150 mill per hour for 2 L and then reevaluate. Right upper quadrant sonogram ordered to rule out gallstones/gastritis. Liver chemistry normal. 04/11: Liver chemistry remains normal. Lipase is still high. RUQ ultrasound not reported but shows CBD 0.71 cm, GB wall 0.18 cm. Liver 15 cm. Discussed with supervisor hydrochloric area and requested consult. MRCP done shows 82 mm with mildly distended gallbladder. No obvious obstructive pathology seen but possibility of a stricture tumor or stone. Most probably patient might have passed stone and has liver chemistry normal, does not need further ERCP. Focal rectosigmoid colitis: Patient also has mild tenderness in pelvic region on deep palpation.Patient not having fever tachycardia or leukocytosis therefore I do not think patient needs antibiotic. Diet advanced to soft. Discussed with Dr. Arce. With history of melanoma and patient being on Opdivo, he advised sigmoidoscopy for tomorrow AM. N.p.o. past midnight. 2. Chronic iron-deficiency anemia: H&H 13.6/39.8. Platelet count normal. Continue iron supplement. 3. Hypothyroidism: On Synthroid. 4. History of melena s/p resection on Opdivo: Last infusion was 2 weeks ago and due for today. 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 Total time of the visit including total time spent in counseling or coordination of care, (more than 50% of the total time, spent in obtaining medical information from nurses and other ancillary care providers,explaining to the patient about labs, imaging, diagnosis and management of active complex medical conditions), review of ultrasound, MRCP and discussion with supervisor hydrochloric area, review of labs and imaging is 40 minutes. Living will/advanced directive/end of life care: Patient does not have living will or advanced directive. She does not have designated power of assistant attorney general for health. Her at the bedside is next of kin. After discussion of benefits/risks procedures involved with full code, DNR CC arrest and DNR CC, the patient and her opted for full code. Patient does want artificial life support including intubation, tube feed, ventilator and/chest compression, central venous catheter, vasopressor and DC shock if needed Clinical Impression(s) from Imaging Studies Abdomen/Pelvis CT 04/10/22 12:06 IMPRESSION: The findings suggestive of a colitis involving the rectosigmoid colon. MRCP 04/11/22 12:07 IMPRESSION: Common duct is dilated to 0.82 cm. Mildly distended gallbladder. While these findings could be age related possibility of obstructing pathology regional to the distal common duct cannot be excluded. Differential diagnostic considerations detailed above. Electronically Signed: Renaldo Mullen MD, RM at 15:29 EDT , Laboratory Results 04/10/22 10:55: WBC 7.5, RBC 4.75, Hgb 13.6, Hct 39.8, MCV 83.8, MCH 28.6, MCHC 34.2, RDW Std Deviation 44.1 H, RDW Coeff of Shailesh 14.6, Plt Count 222, MPV 9.2, Immature Gran % (Auto) 0.300, Neut % (Auto) 50.7, Lymph % (Auto) 34.0, [place] % (Auto) 12.6 H, Eos % (Auto) 1.5, Baso % (Auto) 0.9, Absolute Neuts (auto) 3.8, Absolute Lymphs (auto) 2.53, Nucleated RBC % 0 04/10/22 10:55: Sodium 132 L, Potassium 4.6, Chloride 100, Carbon Dioxide 25.0, Anion Gap 7, BUN 22 H, Creatinine 1.30 H, Estim Creat Clear Calc 41.93, Est GFR (MDRD) Af Amer 54 L, Est GFR (MDRD) Non-Af 45 L, BUN/Creatinine Ratio 16.9, Glucose 110 H, Calcium 9.9, Total Bilirubin 1.00, AST 23, ALT 40, Alkaline Phosphatase 93, Total Protein 8.2, Albumin 4.1, Globulin 4.1, Albumin/Globulin Ratio 1.0, Lipase 4203 H Charges/Coding Visit Charges Inpatient E&M: 41105 Subs Hosp L3
[2022-04-11] MEDS: Bisacodyl 5 MG Tablet 20 MG PO (16:55)
[2022-04-11] MEDS: Polyethylene Glycol 3350 BOWEL PREP PO (16:56)
--- NOTE | 2022-04-11 17:09 | CON.PCM_ITS ---
Assessment & Plan Assessment/Plan (1) Abdominal pain: PLAN: The differential diagnosis for her acute abdominal pain in the setting of inflammation of the rectosigmoid junction sigmoid junction would be colitis secondary to ischemia, less likely also colitis or Crohn's colitis. There is no sign of infectious colitis that distal studies were negative. Recommend to check ESR, CRP, lactate, LDH and get a flexible sigmoidoscopy or colonoscopy to evaluate that area and take biopsies. She has a history of malignant melanoma and her colon should be evaluated as it has not been since she had a diagnosis of acute colitis. (2) Acute pancreatitis: PLAN: Acute pancreatitis likely secondary to choledocholithiasis, distal common bile duct stricture less likely pancreatic stone. MRCP does not show any filling defects and distal common bile duct but it does show dilated common bile duct. I recommend ursodiol to increase bile flow at a dose of 250 mg p.o. twice daily as she does not have any gallstones in her gallbladder and there is no gallbladder wall thickening. HPI Consult Data Date of Consult: 04/11/22 HPI Narrative Reason for Consultation: Abdominal pain and abnormal imaging. HPI Narrative: SHAUNA DO, is a 57 F who presents with nausea and vomiting that has been constant for the past week.? She also admits to worsening constipation over the past week. She has not had history of malignant melanoma medical therapy. patient states she is vomiting up stomach contents.? Patient denies any hematemesis or coffee-ground emesis.? Patient denies any diarrhea, melena, or hematochezia.? Patient denies any dysuria, frequency, or hematuria.? Patient admits to some diffuse abdominal pain.? Patient states it comes and goes.? Patient states it is sharp.? Patient states nothing makes it better and nothing makes it worse.? Patient states she saw her primary care physician yesterday who prescribed nausea medication.? Patient states that she is still unable to keep anything down even with that.? Patient is concerned about dehydration. In the ED she was determined to be hypertensive and tachycardic. Her biochemical analysis had showed increased lipase of 4200 with normal AST, ALT alkaline phosphatase and bilirubin. Her ultrasound had shown a, although diameter of 0.71 mm in the setting of an enlarged gallbladder without gallbladder wall thickening. She got a MRCP which is shown, not examined of 0.[address] scan abdomen pelvis also showed diffuse colitis the rectosigmoid junction. [facility]LY [facility] Medical History Alcohol use Cancer Injury of back Low iron Non-smoker Thyroid disease Home Medications cetirizine 10 mg capsule (Zyrtec) 1 tab PO QHS Allergies 12/15/18 [History Last Taken 04/09/22] ferrous sulfate 325 mg (65 mg iron) tablet (iron) 325 mg PO QHS Check with primary doctor 10/24/21 [History Last Taken 04/09/22] fluticasone propionate 50 mcg/actuation nasal spray,suspension (Flonase Allergy Relief) 1 spray intranasal BID PRN PRN ALLERGIES 10/24/21 [History Last Taken Unknown] levothyroxine 50 mcg tablet 100 mcg PO DAILY hypothyroid 10/24/21 [History Last Taken 04/10/22] multivitamin 1 cap PO QHS Check with primary doctor 10/24/21 [History Last Taken 04/09/22] ondansetron 4 mg disintegrating tablet 8 mg Q8H PRN PRN Nausea And Vomiting 04/10/22 [History Last Taken Unknown] Allergy/AdvReac Type Severity Reaction Status Date / Time Environmental Allergies: AdvReac Other Verified 04/10/22 10:25 Uncoded [hay fever] Surgical History Hx of colonoscopy Hx of melanoma excision Hx of tonsillectomy Social History Smoking Status: Never smoker ROS ROS Narrative Constitutional: Reports fatigue and weakness. No fever HEENT: Reports systems reviewed and no addt'l complaints, except as documented Respiratory/Chest: Denies chest pain, shortness of breath at rest or with exertion Gastrointestinal: As described in HPI Genitourinary: Denies burning urination or new urinary tract symptoms Musculoskeletal: Denies specific joint pain and limited range of motion Neurologic: Denies seizure-like activity. No neurological deficit or stroke skin: History of rash got better with prednisone Endocrinology: Reports systems reviewed and no addt'l complaints, except as documented Hematologic/Lymphatic: Reports systems reviewed and no addt'l complaints, except as documented Rest 14 ROS are negative except as mentioned in HPI Physical Exam Narrative Physical exam General: Alert, Oriented x3, Cooperative HEENT: Atraumatic, PERRLA, EOMI, Normocephalic Oral: Oral mucosa moist. No Gingival or Mucosal Lesions/ Ulcerations Neck: Supple, No JVD, Negative Carotid Bruits Lungs: Air entry equal in bilateral lung bases. No crepitation/rhonchi Cardiovascular: Regular rate, Regular Rhythm, Normal S1, Normal S2, No murmurs Abdomen: Soft. Mild tenderness present on deep palpation in suprapubic pelvic region. bowel Sounds Present, Non-Distended. No palpable mass : No renal angle tenderness. No suprapubic tenderness. Extremities: No edema, Capillary Refill Less than 3 Seconds Skin: No rashes, No breakdown. Very faint scar of melanoma on his extremities and right calf Musculoskeletal: No Tenderness to Palpation of Joints or Extremities. ROM intact. Neurological: Cranial nerves II-XII grossly intact, DTR 2+/4 and Symmetrical, Neuro grossly intact Psych/Mental Status: Normal Affect, Appropriate. Lab / Micro Data Result Diagrams: 04/11/22 06:20 04/11/22 06:20 Labs: Laboratory Results - last 24 hr 04/11/22 06:20: WBC 7.0, RBC 4.06 L, Hgb 11.5 L, Hct 34.3 L, MCV 84.5, MCH 28.3, MCHC 33.5, RDW Std Deviation 45.0 H, RDW Coeff of Shailesh 14.7 H, Plt Count 176, MPV 9.4, Immature Gran % (Auto) 0.300, Neut % (Auto) 54.8, Lymph % (Auto) 30.6, Riley % (Auto) 12.1 H, Eos % (Auto) 1.3, Baso % (Auto) 0.9, Absolute Neuts (auto) 3.8, Absolute Lymphs (auto) 2.13, Nucleated RBC % 0 04/11/22 06:20: Sodium 135 L, Potassium 4.7, Chloride 104, Carbon Dioxide 26.0, Anion Gap 5, BUN 15, Creatinine 1.12 H, Estim Creat Clear Calc 48.67, Est GFR (MDRD) Af Amer 64, Est GFR (MDRD) Non-Af 53 L, BUN/Creatinine Ratio 13.4, Glucose 100, Calcium 9.2, Total Bilirubin 0.80, AST 19, ALT 32, Alkaline Phosphatase 80, Total Protein 6.7, Albumin 3.5, Globulin 3.2, Albumin/Globulin Ratio 1.1, Lipase 3966 H, TSH 10.70 H, Free T4 1.07 Radiology Impression MRCP 04/11/22 12:07 IMPRESSION: Common duct is dilated to 0.82 cm. Mildly distended gallbladder. While these findings could be age related possibility of obstructing pathology regional to the distal common duct cannot be excluded. Differential diagnostic considerations detailed above. Electronically Signed: Renaldo Mullen MD, RM at 15:29 EDT , Charges/Coding Visit Charges Inpatient E&M: 57351 Init Hosp L2
[2022-04-11 17:43] VITALS: BP 130/70; PULSE 78; RESP 14; TEMP 37.2; O2SAT 97
[2022-04-11 17:50] VITALS: BP 130/70; PULSE 70; RESP 14; TEMP 37.2; O2SAT 97
[2022-04-11] MEDS: 0.9% Saline Lock 10 ML Syringe IV (19:02)
[2022-04-11] MEDS: Ondansetron 4 MG/2 ML Vial IV (19:02)
[2022-04-11 21:52] VITALS: BP 126/72; PULSE 69; RESP 16; TEMP 37.1; O2SAT 100
[2022-04-11] MEDS: Ferrous Sulfate 325 MG Tablet PO (21:55)
[2022-04-12] VITALS (13 sets, daily range): BP systolic 95–119; BP diastolic 60–73; PULSE 62–74; RESP 16–18; TEMP 36.5–37.2; O2SAT 96–100; BMI 37.4
--- NOTE | 2022-04-12 05:55 | EKG12_ITS ---
Test Reason : pre-op Blood Pressure : / mmHG Vent. Rate : 064 BPM Atrial Rate : 064 BPM P-R Int : 184 ms QRS Dur : 128 ms QT Int : 382 ms P-R-T Axes : 057 -39 011 degrees QTc Int : 394 ms Normal sinus rhythm Left axis deviation Left ventricular hypertrophy with QRS widening ( R in aVL , [place] product ) Abnormal ECG When compared with ECG of 08-OCT-2009 01:38, QRS duration has increased Confirmed by KADE MATOS, EVA ([id number]), social media editor OTIS STEWARD ([id number]) on 04/13/2022 8:15:51 AM Referred By: Confirmed By:ERNST BRAUN MD
[2022-04-12 06:39] LABS: Absolute Lymphocyte Count 2.02 X10^3/uL (0.83-4.51); Absolute Neutrophil Count 2.7 X10^3/uL (2.0-7.7); Basophil# 0.07 X10^3/uL; Basophil% 1.3 % (0-1); Eosinophil# 0.09 X10^3/uL; Eosinophils% 1.6 % (0-5); Hematocrit 35.4 % (37-47); Hemoglobin 12.1 g/dL (12.0-15.0); Lymphocyte # 2.02 X10^3/ul (0.83-4.51); Lymphocyte % 36.3 % (19-41); Mean Corp Hgb Conc 34.2 g/dL (32-36); Mean Corpuscular Hgb 28.7 pg (27.0-32.0); Mean Corpuscular Volume 84.1 fL (81-99); Mean Platelet Vol. 9.4 fl (6.2-12.0); Monocyte# 0.71 X10^3/uL; Monocyte% 12.7 % (0-10); NRBC Flagged by Analyzer 0 % (0-5); Neutrophil # 2.67 X10^3/uL (2.7-7.7); Neutrophil % 47.9 % (47-70); Platelet Count 199 K/mm3 (150-450); RBC Distribution Width CV 14.6 % (11.6-14.6); RBC Distribution Width SD 44.4 fl (35.1-43.9); Red Blood Count 4.21 M/mm3 (4.2-5.4); White Blood Count 5.6 K/mm3 (4.4-11.0)
[2022-04-12 07:29] LABS: ALB/GLOB Ratio 1.1 RATIO (0.9-2.4); AST(SGOT) 21 U/L (15-37); Alanine Aminotransfer ALT/SGPT 35 U/L (13-56); Albumin, Serum 3.8 g/dL (3.2-5.0); Alkaline Phosphatase 89 U/L (45-117); Anion Gap 5 (5-15); BUN 11 mg/dL (7-18); BUN/Creat Ratio 10.9 RATIO (10-20); Calcium,Total 9.7 mg/dL (8.5-10.1); Chloride 102 mmol/L (98-107); Creatinine, Serum 1.01 mg/dL (0.55-1.02); EST Glomerular Filtration Rate 60 mL/min (>60); Est Glom Filt Rate - Afr Amer 72 mL/min (>60); Estimated Creatinine Clearance 53.97 ml/min; Globulin 3.6 g/dL (2.2-4.2); Glucose 108 mg/dL (74-106); Potassium 4.8 mmol/L (3.5-5.1); Protein, Total 7.4 g/dL (6.4-8.2); Sodium Level 134 mmol/L (136-145)
[2022-04-12 07:48] LABS: International Normalized Ratio 1.1; Prothrombin Time (Protime)PT. 13.8 SECONDS (11.7-14.9)
[2022-04-12 07:49] LABS: Partial Thromboplast Time 28.1 Seconds (24.1-36.2)
[2022-04-12] MEDS: Levothyroxine 112 MCG Tablet PO (07:55)
--- NOTE | 2022-04-12 16:30 | COLBX_PTH ---
PATIENT: SHAUNA DO LOC: [facility] U#:[id number] AGE/SX: 57/F ROOM: [facility] RE04/10/[address]: Dr. Renaldo Mercedes DO : 1965 BED: 1 DIS: 04/12/2022 SPEC #: [id number] RECD: 04/12/22 17:57 STATUS: KARINA REEvelin #: [id number] JOSH: 04/12/22 16:[address]: Christian Arce DEPT: SURGICAL PATHOLOGY RECD BY: [place] ENTERED: 04/13/22 08:02 SP TYPE: COLON BX OTHR DR: MD Dr. Renaldo Morrissey DO Dr. Prakash Chand, MD Tissues: A - Esophagus, NOS B - Ascending colon C - Sigmoid colon biopsy D - Rectum, NOS Procedures: Special Stain Group II Surgery Specimen Level IV Alcian Blue/PAS (control) Comments: @ Ordering doctor for SUIV edited from to @ by KARY at 04/13/22 132 @ Submitting doctor edited from to @ by SIDNEYOD at 04/13/22 1328 HEADER OPERATION: Colonoscopy, EGD ([facility]) with biopsies and polypectomy PRE-OP DIAGNOSIS: Abdominal pain, acute pancreatitis TISSUE SUBMITTED: A ? Distal esophagus biopsy, B ? Ascending colon polyp, C ? Sigmoid biopsies, D ? Rectum biopsy MICROSCOPIC DIAGNOSIS A. Distal esophagus, biopsy: Fragments of gastric mucosa with moderate chronic inflammation. Intestinal metaplasia (goblet cell metaplasia) not identified. See comment. B. Ascending colon polyp, polypectomy: Fragments of tubular adenoma. C. Sigmoid colon, biopsy: Fragments of colonic mucosa, no pathologic diagnosis. D. Rectum, biopsy: Fragments of colonic mucosa, no pathologic diagnosis. SJ:rg 04/16/2022 COMMENT A. Alcian blue/PAS stain with matched control is used in the evaluation of the specimen. MICROSCOPIC DESCRIPTION Slides are reviewed. GROSS DESCRIPTION A - Received in fixative is one container labeled with the patient's name and designated distal esophagus biopsy. The specimen consists of two irregular fragments of light britton soft tissue that in aggregate measure 0.8 x 0.3 x 0.1 cm. The specimen is totally submitted in one cassette. B - Received in fixative is one container labeled with the patient's name and designated ascending colon polyp. The specimen consists of two irregular fragments of light britton soft tissue that in aggregate measure 0.8 x 0.3 x 0.1 cm. The specimen is totally submitted in one cassette. C - Received in fixative is one container labeled with the patient's name and designated sigmoid biopsy. The specimen consists of multiple irregular fragments of light britton soft tissue that in aggregate measure 0.7 x 0.2 x 0.1 cm. The specimen is totally submitted in one cassette. D - Received in fixative is one container labeled with the patient's name and designated rectum biopsy. The specimen consists of two irregular fragments of light britton soft tissue that in aggregate measure 0.5 x 0.2 x 0.1 cm. The specimen is totally submitted in one cassette. / SJ:santo 04/13/2022 TC:1 CPT: 39163 x4, 57415
--- NOTE | 2022-04-12 17:38 | OP.CCLET_ITS ---
04/12/2022 Kevin Swanson Re : Upper GI endoscopy procedure for Kay Garcia Dear Kiki This procedure was performed on March. My impressions and recommendations are as follows: Impressions : - LA Grade A reflux esophagitis. Biopsied. - Small hiatal hernia. - Normal second portion of the duodenum. Recommendations : - Return patient to [facility] for [facility] care. - Resume previous diet. - Continue present medications. - Await pathology results. - Use Protonix (pantoprazole) 40 mg PO daily for 4 weeks. My findings are described in the full procedure note, which is enclosed. If I can be of further assistance, please feel free to contact me at . Sincerely, Christian Arce, 04/12/2022 5:38:06 PM This report has been signed electronically.
--- NOTE | 2022-04-12 17:38 | OP.EGD_ITS ---
Patient Name: Kay Garcia Procedure Date: 04/12/2022 4:56 PM Date of : 1965 Age: 57 Procedure: Upper GI endoscopy Indications: Epigastric abdominal pain Providers: Christian Arce DO Medicines: Monitored Anesthesia Care Patient Profile: This is a 57 year old female. Refer to note in patient chart for documentation of history and physical. Patient has symptoms of acute abdominal cramping. Complications: No immediate complications. Procedure: Pre-Anesthesia Assessment: - Prior to the procedure, a History and Physical was performed, and patient medications and allergies were reviewed. The patient is competent. The risks and benefits of the procedure and the sedation options and risks were discussed with the patient. All questions were answered and informed consent was obtained. Patient identification and proposed procedure were verified by the physician in the pre-procedure area. Mental Status Examination: alert and oriented. Airway Examination: normal oropharyngeal airway and neck mobility. Respiratory Examination: clear to auscultation. CV Examination: normal. Prophylactic Antibiotics: The patient does not require prophylactic antibiotics. Prior Anticoagulants: The patient has taken no previous anticoagulant or antiplatelet agents. ASA Grade Assessment: II - A patient with mild systemic disease. After reviewing the risks and benefits, the patient was deemed in satisfactory condition to undergo the procedure. The anesthesia plan was to use monitored anesthesia care (MAC). Immediately prior to administration of medications, the patient was re-assessed for adequacy to receive sedatives. The heart rate, respiratory rate, oxygen saturations, blood pressure, adequacy of pulmonary ventilation, and response to care were monitored throughout the procedure. The physical status of the patient was re-assessed after the procedure. After obtaining informed consent, the endoscope was passed under direct vision. Throughout the procedure, the patient's blood pressure, pulse, and oxygen saturations were monitored continuously. The pediatric colonoscope was introduced through the mouth, and advanced to the second part of duodenum. The upper GI endoscopy was accomplished without difficulty. The patient tolerated the procedure well. Scope In: 5:03:07 PM Scope Out: 5:06:58 PM Total Procedure Duration Time 0 hours 3 minutes 51 seconds Findings: LA Grade A (one or more mucosal breaks less than 5 mm, not extending between tops of 2 mucosal folds) esophagitis with no bleeding was found 35 to 37 cm from the incisors. Biopsies were taken with a cold forceps for histology. Verification of patient identification for the specimen was done. Estimated blood loss was minimal. A small hiatal hernia was present. The second portion of the duodenum was normal. Impression: - LA Grade A reflux esophagitis. Biopsied. - Small hiatal hernia. - Normal second portion of the duodenum. Recommendation: - Return patient to [facility] for ongoing care. - Resume previous diet. - Continue present medications. - Await pathology results. - Use Protonix (pantoprazole) 40 mg PO daily for 4 weeks. Procedure Code(s): --- Professional --- 37106, Esophagogastroduodenoscopy, flexible, transoral; with biopsy, single or multiple CPT copyright 2017 [employer]. All rights reserved. The codes documented in this report are preliminary and upon drug abuse counselor review may be revised to meet current compliance requirements. Christian Arce DO 04/12/2022 5:38:06 PM This report has been signed electronically. Number of Addenda: 0 Note Initiated On: 04/12/2022 4:56 PM
--- NOTE | 2022-04-12 17:40 | OP.COLON_ITS ---
Patient Name: Kay Garcia Procedure Date: 04/12/2022 5:07 PM Date of : 1965 Age: 57 Procedure: Colonoscopy Indications: Abdominal pain in the left lower quadrant Providers: Christian Arce DO Medicines: Monitored Anesthesia Care Patient Profile: This is a 57 year old female. Refer to note in patient chart for documentation of history and physical. Patient has symptoms of acute abdominal cramping. Last Colonoscopy: 5 years ago. Complications: No immediate complications. Procedure: Pre-Anesthesia Assessment: - Prior to the procedure, a History and Physical was performed, and patient medications and allergies were reviewed. The patient is competent. The risks and benefits of the procedure and the sedation options and risks were discussed with the patient. All questions were answered and informed consent was obtained. Patient identification and proposed procedure were verified by the physician in the pre-procedure area. Mental Status Examination: alert and oriented. Airway Examination: normal oropharyngeal airway and neck mobility. Respiratory Examination: clear to auscultation. CV Examination: normal. Prophylactic Antibiotics: The patient does not require prophylactic antibiotics. Prior Anticoagulants: The patient has taken no previous anticoagulant or antiplatelet agents. ASA Grade Assessment: II - A patient with mild systemic disease. After reviewing the risks and benefits, the patient was deemed in satisfactory condition to undergo the procedure. The anesthesia plan was to use monitored anesthesia care (MAC). Immediately prior to administration of medications, the patient was re-assessed for adequacy to receive sedatives. The heart rate, respiratory rate, oxygen saturations, blood pressure, adequacy of pulmonary ventilation, and response to care were monitored throughout the procedure. The physical status of the patient was re-assessed after the procedure. After I obtained informed consent, the scope was passed under direct vision. Throughout the procedure, the patient's blood pressure, pulse, and oxygen saturations were monitored continuously. The pediatric colonoscope was introduced through the anus and advanced to the cecum, identified by appendiceal orifice and ileocecal valve. The ileocecal valve, appendiceal orifice, and rectum were photographed. Scope In: 5:09:34 PM Scope Withdrawal Time 0 hours 12 minutes 18 seconds Scope Out: 5:25:15 PM Total Procedure Duration Time 0 hours 15 minutes 41 seconds Findings: The perianal and digital rectal examinations were normal. Localized mild inflammation characterized by erosions and erythema was found in the rectum, in the recto-sigmoid colon and in the sigmoid colon. Biopsies were taken with a cold forceps for histology. Verification of patient identification for the specimen was done. Estimated blood loss was minimal. A 5 mm polyp was found in the ascending colon. The polyp was sessile. The polyp was removed with a hot snare. Resection and retrieval were complete. Verification of patient identification for the specimen was done. Estimated blood loss was minimal. Impression: - Localized mild inflammation was found in the rectum, in the recto-sigmoid colon and in the sigmoid colon secondary to colitis. Biopsied. - One 5 mm polyp in the ascending colon, removed with a hot snare. Resected and retrieved. Recommendation: - Repeat colonoscopy in 5 years for surveillance. - Continue present medications. Procedure Code(s): --- Professional --- 88497, Colonoscopy, flexible; with removal of tumor(s), polyp(s), or other lesion(s) by snare technique 63695, 57, Colonoscopy, flexible; with biopsy, single or multiple CPT copyright 2017 [employer]. All rights reserved. The codes documented in this report are preliminary and upon masonry contractor review may be revised to meet current compliance requirements. Christian Arce DO 04/12/2022 5:40:39 PM This report has been signed electronically. Number of Addenda: 0 Note Initiated On: 04/12/2022 5:07 PM
--- NOTE | 2022-04-12 17:41 | OP.CCLET_ITS ---
04/12/2022 Kevin Swanson Re : Colonoscopy procedure for Kay Garcia Dear Kiki This procedure was performed on March. My impressions and recommendations are as follows: Impressions : - Localized mild inflammation was found in the rectum, in the recto-sigmoid colon and in the sigmoid colon secondary to colitis. Biopsied. - One 5 mm polyp in the ascending colon, removed with a hot snare. Resected and retrieved. Recommendations : - Repeat colonoscopy in 5 years for surveillance. - Continue present medications. My findings are described in the full procedure note, which is enclosed. If I can be of further assistance, please feel free to contact me at . Sincerely, Christian Arce, 04/12/2022 5:40:39 PM This report has been signed electronically.
[2022-04-12] MEDS: FLU VACC QS2022-23(6MOS UP)/PF 60 MCG/0.5 ML SYRINGE IM (18:22)
--- NOTE | 2022-04-12 18:24 | DCINST_ITS ---
Discharge Instructions Diet Discharge Diet: No restrictions Activity Discharge Activity: Return to Normal Activity Weight Bearing Status: Full weight bearing Follow Up Care Test Results: Test results from this visit will be discussed in further detail at your follow- up appointment, if applicable. Discharge Plan Admission Admit Date/Time: 04/10/22 12:28 Primary Reason for Your Visit: pnacreatitis, colitis Attending Provider: Renaldo Mercedes Primary Care Provider: Kevin Swanson Consulting Providers: Des Grant Discharge Orders/Prescriptions Prescriptions: New pantoprazole [Protonix] 40 mg tablet,delayed release (DR/EC) 40 mg PO DAILY Qty: 30 0RF Continued Zyrtec 10 MG capsule 1 tab PO QHS levothyroxine 50 mcg Tablet 100 mcg PO DAILY ferrous sulfate [iron] 325 mg (65 mg iron) Tablet 325 mg PO QHS multivitamin Capsule 1 cap PO QHS fluticasone propionate [Flonase Allergy Relief] 50 mcg/actuation [place],Suspension 1 spray INTRANASAL BID PRN PRN (Reason: ALLERGIES) ondansetron 4 mg tablet,disintegrating 8 mg Q8H PRN PRN (Reason: Nausea And Vomiting) Label Comments: Take 2 tablets by mouth every 8 hours as needed for nausea/vomiting. Referrals / Follow Up: Kevin Swanson MD [Primary Care Provider] - See Referral Note (at scheduled appointment time) Francisco De Souza DO [Med Staff - Active Staff] - See Referral Note (call for follow up appointment) Christian Arce DO [Med Staff - Active Staff] - See Referral Note (in 3-4 weeks) Disposition Disposition (needs filled in before D/C Order can be placed): Home, Self Care
--- NOTE | 2022-04-12 18:34 | PCM.DC.SUM ---
Providers Date of Admission: 04/10/22 Date of Discharge: 04/12/22 Primary Care Physician: Dr. Kevin Swanson MD Consultations 04/11/22 10:13 Consult: Gastroenterology Routine Consulting Provider: [facility] Reason for Consult: sigmoidrectal circumferential colitis, Constipation/abd discomfort EMERGENT Consult: No MD Notified: Yes Date Notified: 04/11/22 Time Notified: 10:16 Method of Notification: Text Reason For Visit: ABDOMINAL PAIN, N/V Diagnosis Discharge Diagnosis (1) Abdominal pain: Status: Acute Code(s): R10.9 - Unspecified abdominal pain (2) Acute pancreatitis: Status: Acute Code(s): K85.90 - Acute pancreatitis without necrosis or infection, unspecified Plan 1. Colitis of the rectosigmoid colon-exact etiology unclear #2 pancreatitis-felt to be secondary to possible passage of gallstone #3 GERD #4 hypothyroidism #5 dehydration Medications at Discharge Home Medications cetirizine 10 mg capsule (Zyrtec) 1 tab PO QHS Allergies 12/15/18 ferrous sulfate 325 mg (65 mg iron) tablet (iron) 325 mg PO QHS Check with primary doctor 10/24/21 fluticasone propionate 50 mcg/actuation nasal spray,suspension (Flonase Allergy Relief) 1 spray intranasal BID PRN PRN ALLERGIES 10/24/21 levothyroxine 50 mcg tablet 100 mcg PO DAILY hypothyroid 10/24/21 multivitamin 1 cap PO QHS Check with primary doctor 10/24/21 ondansetron 4 mg disintegrating tablet 8 mg Q8H PRN PRN Nausea And Vomiting 04/10/22 pantoprazole 40 mg tablet,delayed release (Protonix) 40 mg PO DAILY #30 tabs 04/12/22 Hospital Course Procedures Colonoscopy and EGD Summary of Care Provided Minutes Spent on Discharge: 31 Hospital Course: This 57-year-old white female was seen in the emergency room at [facility] with chief complaint of nausea and vomiting x1 week, she also complained of diffuse abdominal pain which was intermittent in nature. Work-up in the emergency room included a CBC which was unremarkable, chemistry was remarkable for BUN of 22, creatinine of 1.3, and patient's lipase was elevated [place] 4203. CT of the abdomen and pelvis was obtained, it showed evidence of colitis involving the rectosigmoid colon region. Patient was admitted to PCU, she was seen in consultation by gastroenterology, she was given IV fluids, and underwent an EGD which showed mild reflux esophagitis and a colonoscopy which showed evidence of mild colitis in the rectosigmoid region-the exact etiology of the colitis was unknown. Patient's TSH was found to be elevated, she had been under treatment for hypothyroidism by her oncologist and she stated that approximately 3 weeks prior her dose of Synthroid was readjusted. This examiner felt that she should follow-up with her oncologist as an outpatient for any further adjustment of her Synthroid. On 04/12/2022, patient was seen and examined: On examination she appeared in good health and spirits, she does not appear to be in any distress. Vital signs as documented. Skin warm and dry and without overt rashes. Neck without JVD, thyroid appears normal, trachea is midline, neck is supple. Lungs clear, normal air movement was noted. Heart exam notable for regular rhythm, normal sounds and absence of murmurs, rubs or gallops. Abdomen unremarkable and without evidence of organomegaly, masses, or abdominal aortic enlargement, bowel sounds are present in all 4 quadrants, no abdominal tenderness was noted. Extremities nonedematous, no cyanosis was noted, no clubbing was noted. Neuro: Cranial nerves II through XII are grossly intact, no focal motor deficits were noted, sensation to light touch and pinprick is intact, motor exam 5/5 throughout. Psych: Patient is alert and oriented x3, she does not appear anxious or depressed, she does not appear agitated. Patient appears stable for discharge on 04/12/2022. Weight / BMI Weight Weight: 102.058 kg Body Mass Index (BMI) 37.4 ABG / Lab / Microbiology Data Result Diagrams: 04/12/22 05:55 04/12/22 05:55 Laboratory: Laboratory Results - last 24 hr 04/12/22 05:55: Sodium 134 L, Potassium 4.8, Chloride 102, Carbon Dioxide 27.0, Anion Gap 5, BUN 11, Creatinine 1.01, Estim Creat Clear Calc 53.97, Est GFR (MDRD) Af Amer 72, Est GFR (MDRD) Non-Af 60, BUN/Creatinine Ratio 10.9, Glucose 108 H, Calcium 9.7, Total Bilirubin 0.80, AST 21, ALT 35, Alkaline Phosphatase 89, Total Protein 7.4, Albumin 3.8, Globulin 3.6, Albumin/Globulin Ratio 1.1, TSH 13.40 H 04/12/22 05:55: WBC 5.6, RBC 4.21, Hgb 12.1, Hct 35.4 L, MCV 84.1, MCH 28.7, MCHC 34.2, RDW Std Deviation 44.4 H, RDW Coeff of Shailesh 14.6, Plt Count 199, MPV 9.4, Immature Gran % (Auto) 0.200, Neut % (Auto) 47.9, Lymph % (Auto) 36.3, [place] % (Auto) 12.7 H, Eos % (Auto) 1.6, Baso % (Auto) 1.3 H, Absolute Neuts (auto) 2.7, Absolute Lymphs (auto) 2.02, Nucleated RBC % 0 04/12/22 05:55: PT 13.8, INR 1.1, APTT 28.1 Radiography Diagnostic Testing: Radiology Impression Abdomen Ultrasound 04/10/22 13:29 IMPRESSION: Mild dilatation of the common bile duct. No other abnormalities identified. If indicated further evaluation with ERCP or MRCP may be beneficial. Electronically Signed: Lamin Haywood MD at 20:30 EDT , D/C Instructions Discharge Diet: No restrictions Weight Bearing Status: Full weight bearing Meaningful Use Info Meaningful Use Diagnoses (Choose all that apply): None applicable Discharge Plan Admission Admit Date/Time: 04/10/22 12:28 Primary Reason for Your Visit: pnacreatitis, colitis Attending Provider: Renaldo Mercedes Primary Care Provider: Kevin Swanson Consulting Providers: Des Grant Discharge Orders/Prescriptions Prescriptions: New pantoprazole [Protonix] 40 mg tablet,delayed release (DR/EC) 40 mg PO DAILY Qty: 30 0RF Continued Zyrtec 10 MG capsule 1 tab PO QHS levothyroxine 50 mcg Tablet 100 mcg PO DAILY ferrous sulfate [iron] 325 mg (65 mg iron) Tablet 325 mg PO QHS multivitamin Capsule 1 cap PO QHS fluticasone propionate [Flonase Allergy Relief] 50 mcg/actuation [place],Suspension 1 spray INTRANASAL BID PRN PRN (Reason: ALLERGIES) ondansetron 4 mg tablet,disintegrating 8 mg Q8H PRN PRN (Reason: Nausea And Vomiting) Label Comments: Take 2 tablets by mouth every 8 hours as needed for nausea/vomiting. Referrals / Follow Up: Kevin Swanson MD [Primary Care Provider] - See Referral Note (at scheduled appointment time) Francisco De Souza DO [Med Staff - Active Staff] - See Referral Note (call for follow up appointment) Christian Arce DO [Med Staff - Active Staff] - See Referral Note (in 3-4 weeks) Disposition Disposition (needs filled in before D/C Order can be placed): Home, Self Care Charges/Coding Visit Charges Inpatient E&M: 10544 Disch Hosp
== END 2022-04-12 18:41 | disposition home or self-care (01) | DRG 440 ==
LOC: ED 11:17 → PCU 12:58
PROVIDERS: Anesthesiology; Internal Medicine Gastroenterology; Admitting Provider Internal Medicine; Emergency Provider Emergency Medicine; PCP Family Medicine; Visit Provider Internal Medicine
PROC: 0DJD8ZZ Inspection of Lower Intestinal Tract, Via Natural or Artificial Opening Endoscopic (ICD-10-PCS; CPT 45378; principal; 2022-04-12 16:25)
DX: K85.90 Acute pancreatitis without necrosis or infection, unspecified (principal); K83.8 Other specified diseases of biliary tract; E86.0 Dehydration; E03.9 Hypothyroidism, unspecified; D50.9 Iron deficiency anemia, unspecified; K58.9 Irritable bowel syndrome, unspecified; K82.8 Other specified diseases of gallbladder; K80.20 Calculus of gallbladder without cholecystitis without obstruction; K21.00 Gastro-esophageal reflux disease with esophagitis, without bleeding; K63.5 Polyp of colon; K44.9 Diaphragmatic hernia without obstruction or gangrene; Z66 Do not resuscitate; Z51.5 Encounter for palliative care
CPT/HCPCS: 36415; 74177; 74181; 76705; 80053; 81001; 83690; 83735; 84439; 84443; 85025; 85610; 85730; 88305; 88313; 93005; 97802; 99251; 99285; J7030; Q9967; 90686; A4216; G0463; J2405

== ENCOUNTER → 2022-04-20 | Outpatient (CLI) | payer OTHER, SELFPAY ==
[2022-04-23 09:30] LABS: Lipase 4111 U/L (73-393)
== END | disposition home or self-care (01) ==
LOC: LABSPEC 04-23 09:01
PROVIDERS: PCP Family Medicine; Referring Provider Internal Medicine Hematology & Oncology; Visit Provider Internal Medicine Hematology & Oncology
DX: C43.71 Malignant melanoma of right lower limb, including hip (principal); C77.4 Secondary and unspecified malignant neoplasm of inguinal and lower limb lymph nodes
CPT/HCPCS: 83690

== ENCOUNTER → 2022-04-23 | Outpatient (CLI) | payer OTHER, SELFPAY ==
--- NOTE | 2022-04-23 10:28 | MRI_ITS ---
STUDY: MRI BRAIN WITH AND WITHOUT CONTRAST (ATTENTION INTERNAL AUDITORY CANALS - I.A.C.''s) REASON FOR EXAM: Female, 57 years old. SUDDEN HEARING LOSS left ear, [place]. Prior medical history of melanoma TECHNIQUE: Standardized multiplanar fat and water weighted pulse sequences were obtained. ml of 20ml Clariscan contrast material was administered intravenously for the contrast portion of the examination. COMPARISON: None. FINDINGS: Normal bilateral temporal bones. Normal bilateral internal auditory canals. There is no demonstrated intracanalicular or cisternal vestibular schwannoma (acoustic neuroma). Mild to moderately increased enhancement is seen in both the left 7th and 8th cranial nerves best seen on image 8/15 series 12. There is no enhancement of the right VIIth or VIIIth cranial nerves. Normal bilateral cochlea, vestibules and semicircular canals. No cerebellar pontine angle mass or cyst is present. No demonstrated enlargement of the vestibular canals or temporal bony structures. No extra-axial mass is seen. No demonstrated MONDINI''s malformation. Normal size of the ventricles and extra-axial spaces for the patient''s age. There are a limited number of small white matter hyperintensities, distributed throughout the deep white matter tracts of the cerebral hemispheres, consistent with mild chronic white matter ischemic changes. There is no evidence for recent intracranial ischemia or other cause of cytotoxic edema on diffusion weighted imaging (DWI). Normal T2* images of the brain without demonstrated susceptibility artifact. There is no demonstrated hemosiderin stain. Normal bilateral basal ganglia. Normal thalami. Normal flow voids within the major intracranial circulation suggesting patency by spin echo criteria. Normal venous enhancement. There is no enhancing intra-axial or extra-axial abnormality. No brain parenchymal lesions or abnormal enhancement is seen. There is no extra-axial fluid accumulation. Normal sella turcica, pituitary gland, infundibular stalk, optic chiasm and hypothalamus. Normal tectal plate and pineal gland. Normal midbrain, sara and medulla. Normal cerebellum. Normal basal cisterns. No demonstrated orbital abnormality, within the constraints of a routine brain study. Normal visualized paranasal sinuses. Normal calvarium and skull base. Normal visualized soft tissue structures. Normal visualized upper cervical spine. MRI/Brain W/WO Contrast IMPRESSION: 1. Nonspecified neuritis of the 7th and 8th cranial nerves. Mild to moderately increased enhancement is seen in both the left 7th and 8th cranial nerves best seen on image 8/15 series 12. No nerve enlargement or nodules are present. 2. Minimal chronic ischemic changes of the white matter of the brain. No acute or significant process. Electronically Signed: Olu Ambrose MD at 15:04 EDT ,
== END | disposition home or self-care (01) ==
PROVIDERS: PCP Nurse Practitioner Primary Care; Referring Provider Otolaryngology Otolaryngology/Facial Plastic Surgery; Visit Provider Otolaryngology Otolaryngology/Facial Plastic Surgery
DX: H90.41 Sensorineural hearing loss, unilateral, right ear, with unrestricted hearing on the contralateral side (principal); R27.0 Ataxia, unspecified
CPT/HCPCS: 70553; A9575

== ENCOUNTER → 2022-10-02 | Outpatient (CLI) | payer OTHER, SELFPAY ==
--- NOTE | 2022-10-02 09:30 | PET_ITS ---
EXAMINATION: FDG PET-CT ? Head to Toe INDICATIONS: A 57-year-old female with history of malignant melanoma presenting for restaging examination. COMPARISON EXAMINATION: FDG PET study dated 11/08/21 TECHNIQUE: Following the intravenous administration of 14.7 mCi of F-18 deoxyglucose via the left antecubital fossa, multiplanar image acquisitions of the head, neck, chest, abdomen and pelvis, lower extremities to the level of the bilateral mid foot, obtained at one hour post radiopharmaceutical administration contemporaneously interpreted with the current CT of the head, neck, chest, abdomen and pelvis, lower extremities to the level of the bilateral mid foot, dated 10/02/22 via coregistration and FDG PET study dated 11/08/21 reveals: BLOOD GLUCOSE LEVEL:?? 114 mg/dl?HEIGHT:?64 inches?WEIGHT: 241 lbs. FINDINGS: Head/Neck: There is no evidence of abnormal increased glucose metabolism in the pharyngeal mucosal space, parapharyngeal space, bilateral-lateral and anterior neck, hypopharynx and distribution of the laryngeal structures. Symmetric glucose metabolism is evident in the occipital, frontal, parietal and temporal lobes of the cerebral cortex, as well as normal visualization of the basal ganglia and cerebellar hemispheres. Prominent uptake is noted in the region of the tongue base, hypopharynx without evidence of soft tissue thickening most consistent with physiologic tracer uptake. CHEST: There is no quantitative scintigraphic evidence of abnormal increased glucose metabolism within the context of the bilateral hemithorax pulmonary parenchyma, right and left hemithorax pleural interface, mediastinal structures and right-left thoracic perihilum. Prominent radiopharmaceutical concentration is identified in the left ventricular myocardium commensurate with the [place]. Pertinent chest CT findings are as follows. There is atherosclerotic calcification defined in the thoracic aorta without evidence of dilatation-aneurysm formation. Bilateral axillary soft tissue densities are non-glucose avid. Scattered mediastinal soft tissue reveals no evidence of increased FDG uptake. There are no parenchymal densities-nodules defined in the right and left hemithorax with quantitatively significant increased FDG uptake. Abdomen/Pelvis: Normal physiologic distribution of the radiopharmaceutical is apparent in the hepatic and splenic parenchyma, both renal units, bladder and visualized intestinal tract. Pertinent abdomen and pelvis CT findings are as follows. Pelvic arterial calcification is observed. Scattered bilateral inguinal soft tissue densities reveal no evidence of increased FDG uptake. Retained uterus reveals no evidence of increased uptake. Skeletal/integumentary: Degenerative changes are noted in the cervical, thoracic and lumbar spine without evidence of increased radiopharmaceutical concentration. There are no well-defined sclerotic-lytic changes manifest on review of the appendicular-axial skeletal structures. Meticulous inspection of the whole body subcutaneous tissues reveals no evidence of increased FDG uptake. Increased radiopharmaceutical concentration is defined in the left forefoot and right ankle articulation with a calculated maximal standard uptake value of 2.3. Findings are most consistent with activated leukocytes associated with degenerative arthrosis. PET/PET/CT Tumor WB Subs IMPRESSION: 1. NEGATIVE EXAMINATION. There is no definitive quantitative scintigraphic evidence of recurrent/viable neoplasm. 2. Enhanced radiopharmaceutical concentration defined in the left forefoot and right ankle articulation do not fulfill quantitative criteria for viable neoplasm. (Cheri et al, Clinical Nuclear Medicine, 29:161, 2004). 3. Overall, compared to the prior FDG PET study dated 11/08/21, there is current and continued absence of defined viable neoplastic disease. Electronic Signature Samuel Treadwell D.O. Accurate Quantification of SUVs for this report are calculated using the exclusive [employer]. (U.S. Patent No. [phone] [phone] B2 [phone] [place] patent [phone]). Standardization and correction of the FDG SUV metric via [employer] technology allow for vendor non-specific objective quantitative examination comparison and optimization of the sensitivity and specificity of the FDG PET-CT examination. Electronically Signed: Samuel Treadwell, at 0:03 EDT ,
== END | disposition home or self-care (01) ==
PROVIDERS: PCP Nurse Practitioner Primary Care; Referring Provider Internal Medicine Hematology & Oncology; Visit Provider Internal Medicine Hematology & Oncology
DX: C43.71 Malignant melanoma of right lower limb, including hip (principal); C77.4 Secondary and unspecified malignant neoplasm of inguinal and lower limb lymph nodes
CPT/HCPCS: 78816; A9552

== ENCOUNTER 2023-02-23 11:34 | Emergency (ER) | payer OTHER, SELFPAY ==
[2023-02-23 11:35] VITALS: BP 104/56; PULSE 82; RESP 16; TEMP 36.9; O2SAT 99; BMI 32.8
--- NOTE | 2023-02-23 11:56 | RAD_ITS ---
INDICATION: Fever EXAMINATION/TECHNIQUE: X-RAY - XR Chest 2 Views COMPARISON: No relevant prior comparison study available FINDINGS: LINES/DEVICES: None. LUNGS: No consolidation, edema or effusion. No pneumothorax. MEDIASTINUM AND CARDIOVASCULAR STRUCTURES: Cardiac silhouette not enlarged. Central airways and mediastinal contour are unremarkable. BONES AND SOFT TISSUES: Unremarkable. RAD/Chest PA and Lateral IMPRESSION: No radiographic evidence of acute cardiopulmonary disease. Electronically Signed: Melonie Smith MD at 12:53 EDT ,
[2023-02-23 11:58] VITALS: BP 96/55; PULSE 71; RESP 18; TEMP 36.6; O2SAT 98
--- NOTE | 2023-02-23 12:08 | EDS_ITS ---
<Statement entered by Lindsay Juarez MD - 02/23/23 16:08> I have personally performed a face to face assessment of the patient and have reviewed the FABRIZIO Note. Patient presents secondary to generalized fatigue and not feeling well for the past month. She recently followed up with her oncologist and was found to have hypercalcemia. She received an infusion. She is concerned that this may be acting up again. She does report a low-grade fever of 100. She had nausea with a few episodes of vomiting. No diarrhea. No significant cough or congestion. Patient sitting upright in bed no acute distress. She is nontoxic-appearing. Head and neck examination unremarkable. Heart is regular rate and rhythm. Lung sounds are clear. Abdomen is soft and nontender. Hypoactive but present bowel sounds are noted. Neuro exam unremarkable. Patient's most recent visit to oncology at [facility] is reviewed. At that time her calcium was 11. Repeat labs today reveal a calcium slightly low at 7.7. Remainder of labs appear to be consistent with baseline. She is given a liter of IV fluids here. COVID and influenza swabs are negative. Chest x-ray is unremarkable per my interpretation. Patient is given reassurance and will follow-up with heme-onc. Return instructions given. HPI History of Present Illness Chief Complaint: Fever Narrative Narrative: Patient is a 58-year-old female with history of adrenal insufficiency, history of melanoma, GERD, hypothyroidism who presents to the emergency department for 1 month of generalized fatigue. Patient states that all month of January, she has been feeling generalized weakness, just feeling like she has no energy. Patient did go to [place] 2 weeks ago, states she was feeling tired then, and when she came back she is even more tired. She states she did have a low-grade fever over the last 24 hours. Patient denies any infectious symptoms such as cough, urinary frequency, sick contacts. Patient does take hydrocortisone, as well as levothyroxine. [facility] Medical History Alcohol use Cancer Injury of back Low iron Non-smoker Thyroid disease Home Medications cetirizine 10 mg capsule (Zyrtec) 1 tab PO QHS Allergies 12/15/18 [History Last Taken 04/09/22] ferrous sulfate 325 mg (65 mg iron) tablet (iron) 325 mg PO QHS Check with primary doctor 10/24/21 [History Last Taken 04/09/22] fluticasone propionate 50 mcg/actuation nasal spray,suspension (Flonase Allergy Relief) 1 spray intranasal BID PRN PRN ALLERGIES 10/24/21 [History Last Taken Unknown] levothyroxine 50 mcg tablet 100 mcg PO DAILY hypothyroid 10/24/21 [History Last Taken 04/10/22] multivitamin 1 cap PO QHS Check with primary doctor 10/24/21 [History Last Taken 04/09/22] ondansetron 4 mg disintegrating tablet 8 mg Q8H PRN PRN Nausea And Vomiting 04/10/22 [History Last Taken Unknown] pantoprazole 40 mg tablet,delayed release (Protonix) 40 mg PO DAILY #30 tabs 04/12/22 [Rx Last Taken Unknown] ondansetron 4 mg disintegrating tablet 4 mg PO Q8H PRN PRN Nausea #10 tabs 02/23/23 [Rx Last Taken Unknown] Allergy/AdvReac Type Severity Reaction Status Date / Time Environmental Allergies: AdvReac Other Verified 04/10/22 10:25 Uncoded [hay fever] Surgical History Hx of colonoscopy Hx of melanoma excision Hx of tonsillectomy Social History Smoking Status: Never smoker ROS ROS ED ROS Narrative Constitutional: Negative for weight loss. Positive for fever and chills, generalized weakness and fatigue Eyes: Negative for vision loss, vision change, double vision ENT: Negative for any sore throat, ear pain, congestion Cardiovascular: Negative for any chest pain, tightness, palpitations Respiratory: Negative for any cough, sputum production, hemoptysis, dyspnea, dyspnea on exertion, orthopnea Gastrointestinal: Negative for any abdominal pain, nausea, vomiting, diarrhea, constipation, blood in stool, blood in vomit : Negative for any urinary frequency, dysuria, retention, blood in urine Muscle skeletal: Negative for any muscle joint pain, stiffness, arthralgias, neck pain, back pain. Positive for myalgias Neurological: Negative for any headache, syncope, numbness or tingling, dizziness Skin: Negative for any rashes, lumps, itching, abrasions, lacerations Psychiatric: Negative for any depression, anxiety, stress, suicidal ideation, homicidal ideation Hematologic: Negative for any easy bruising, excessive bruising, easy bleeding Allergies: Negative for any eczema, hives, rash EXAM Physical Exam Narrative Exam Narrative: Vital signs reviewed. HEET: Head normocephalic atraumatic, TMs clear bilaterally. Posterior pharynx is clear, moist mucous membranes. Nares clear bilaterally. Neck: Supple with no lymphadenopathy or tenderness. No signs of meningismus, negative jolt sign. Cardiac: Regular rate and rhythm no murmurs gallops or rubs, equal peripheral pulses bilaterally. Respiratory: Lungs clear to auscultation bilaterally. No chest tenderness. Abdomen: Soft, nontender, nondistended. No abdominal bruit or pulsatile masses. No hepatosplenomegaly Extremities: No peripheral edema, no signs of gross trauma or deformity. Active full range of motion of all extremities. Neuro: Cranial nerves II through XII intact, no focal neurological deficits. Skin: Clean dry and intact with no rash, purpura, petechiae, vesicles or pustules. Backs/flank: No CVA tenderness, no midline spinal tenderness, no deformity. Psych: Normal mood and affect. No SI, HI or acute psychosis. Const Vital Signs: 02/23/23 11:35 02/23/23 11:56 02/23/23 11:58 Temperature 98.4 F 97.9 F Temperature Source Temporal Oral Pulse Rate 82 71 Respiratory Rate 16 18 Respiratory Effort Normal Non-Labored Respiratory Pattern Normal Blood Pressure 104/56 L 96/55 L Blood Pressure Mean 72 68 Pulse Ox 99 98 Oxygen Delivery Method Room Air Room Air [facility] Lab Data Labs: Laboratory Results - last 24 hr 02/23/23 02/23/23 12:15 12:50 WBC 10.8 RBC 4.97 Hgb 12.8 Hct 39.7 MCV 79.9 L MCH 25.8 L MCHC 32.2
--- NOTE | 2023-02-23 12:08 | EX.ED.DYSGE1 ---
HPI History of Present Illness Chief Complaint: Fever Narrative Narrative: Patient is a 58-year-old female with history of adrenal insufficiency, history of melanoma, GERD, hypothyroidism who presents to the emergency department for 1 month of generalized fatigue. Patient states that all month of January, she has been feeling generalized weakness, just feeling like she has no energy. Patient did go to [place] 2 weeks ago, states she was feeling tired then, and when she came back she is even more tired. She states she did have a low-grade fever over the last 24 hours. Patient denies any infectious symptoms such as cough, urinary frequency, sick contacts. Patient does take hydrocortisone, as well as levothyroxine. [facility] Medical History Alcohol use Cancer Injury of back Low iron Non-smoker Thyroid disease Home Medications cetirizine 10 mg capsule (Zyrtec) 1 tab PO QHS Allergies 12/15/18 [History Last Taken 04/09/22] ferrous sulfate 325 mg (65 mg iron) tablet (iron) 325 mg PO QHS Check with primary doctor 10/24/21 [History Last Taken 04/09/22] fluticasone propionate 50 mcg/actuation nasal spray,suspension (Flonase Allergy Relief) 1 spray intranasal BID PRN PRN ALLERGIES 10/24/21 [History Last Taken Unknown] levothyroxine 50 mcg tablet 100 mcg PO DAILY hypothyroid 10/24/21 [History Last Taken 04/10/22] multivitamin 1 cap PO QHS Check with primary doctor 10/24/21 [History Last Taken 04/09/22] ondansetron 4 mg disintegrating tablet 8 mg Q8H PRN PRN Nausea And Vomiting 04/10/22 [History Last Taken Unknown] pantoprazole 40 mg tablet,delayed release (Protonix) 40 mg PO DAILY #30 tabs 04/12/22 [Rx Last Taken Unknown] ondansetron 4 mg disintegrating tablet 4 mg PO Q8H PRN PRN Nausea #10 tabs 02/23/23 [Rx Last Taken Unknown] Allergy/AdvReac Type Severity Reaction Status Date / Time Environmental Allergies: AdvReac Other Verified 04/10/22 10:25 Uncoded [hay fever] Surgical History Hx of colonoscopy Hx of melanoma excision Hx of tonsillectomy Social History Smoking Status: Never smoker ROS ROS ED ROS Narrative Constitutional: Negative for weight loss. Positive for fever and chills, generalized weakness and fatigue Eyes: Negative for vision loss, vision change, double vision ENT: Negative for any sore throat, ear pain, congestion Cardiovascular: Negative for any chest pain, tightness, palpitations Respiratory: Negative for any cough, sputum production, hemoptysis, dyspnea, dyspnea on exertion, orthopnea Gastrointestinal: Negative for any abdominal pain, nausea, vomiting, diarrhea, constipation, blood in stool, blood in vomit : Negative for any urinary frequency, dysuria, retention, blood in urine Muscle skeletal: Negative for any muscle joint pain, stiffness, arthralgias, neck pain, back pain. Positive for myalgias Neurological: Negative for any headache, syncope, numbness or tingling, dizziness Skin: Negative for any rashes, lumps, itching, abrasions, lacerations Psychiatric: Negative for any depression, anxiety, stress, suicidal ideation, homicidal ideation Hematologic: Negative for any easy bruising, excessive bruising, easy bleeding Allergies: Negative for any eczema, hives, rash EXAM Physical Exam Narrative Exam Narrative: Vital signs reviewed. HEET: Head normocephalic atraumatic, TMs clear bilaterally. Posterior pharynx is clear, moist mucous membranes. Nares clear bilaterally. Neck: Supple with no lymphadenopathy or tenderness. No signs of meningismus, negative jolt sign. Cardiac: Regular rate and rhythm no murmurs gallops or rubs, equal peripheral pulses bilaterally. Respiratory: Lungs clear to auscultation bilaterally. No chest tenderness. Abdomen: Soft, nontender, nondistended. No abdominal bruit or pulsatile masses. No hepatosplenomegaly Extremities: No peripheral edema, no signs of gross trauma or deformity. Active full range of motion of all extremities. Neuro: Cranial nerves II through XII intact, no focal neurological deficits. Skin: Clean dry and intact with no rash, purpura, petechiae, vesicles or pustules. Backs/flank: No CVA tenderness, no midline spinal tenderness, no deformity. Psych: Normal mood and affect. No SI, HI or acute psychosis. Const Vital Signs: 02/23/23 11:35 02/23/23 11:56 02/23/23 11:58 Temperature 98.4 F 97.9 F Temperature Source Temporal Oral Pulse Rate 82 71 Respiratory Rate 16 18 Respiratory Effort Normal Non-Labored Respiratory Pattern Normal Blood Pressure 104/56 L 96/55 L Blood Pressure Mean 72 68 Pulse Ox 99 98 Oxygen Delivery Method Room Air Room Air [facility] Lab Data Labs: Laboratory Results - last 24 hr 02/23/23 02/23/23 12:15 12:50 WBC 10.8 RBC 4.97 Hgb 12.8 Hct 39.7 MCV 79.9 L MCH 25.8 L MCHC 32.2 RDW Std Deviation 44.8 H RDW Coeff of Shailesh 15.7 H Plt Count 267 MPV 9.8 Immature Gran % (Auto) 0.300 Neut % (Auto) 27.0 L Lymph % (Auto) 52.1 H Mccracken % (Auto) 18.8 H Eos % (Auto) 0.8 Baso % (Auto) 1.0 Absolute Neuts (auto) 2.9 Absolute Lymphs (auto) 5.61 H Nucleated RBC % 0 Differential Comment SCANNED Sodium 132 L Potassium 3.8 Chloride 101 Carbon Dioxide 25.0 Anion Gap 6 BUN 28 H Creatinine 1.24 H Estim Creat Clear Calc 43.41 Est GFR (MDRD) Af Amer 57 L Est GFR (MDRD) Non-Af 47 L BUN/Creatinine Ratio 22.6 H Glucose 95 Calcium 7.7 L TSH 0.18 L Cortisol 25.20 H Urine Color Yellow Urine Clarity Clear Urine pH 6.0 Ur Specific Anton 1.010 Urine Protein 30 H Urine Glucose (UA) Normal Urine Ketones Negative Urine Occult Blood 10 H Urine Nitrite Negative Urine Bilirubin Negative Urine Urobilinogen Normal Ur Leukocyte Esterase 25 H Urine RBC 0 SEEN Urine WBC 0-5 SEEN Ur Squamous Epith Cells 0-5 SEEN Urine Bacteria RARE Urine Mucus 0 SEEN Radiography Diagnostic Testing: Clinical Impression(s) from Imaging Studies Chest X-Ray 02/23/23 11:56 IMPRESSION: No radiographic evidence of acute cardiopulmonary disease. Electronically Signed: Melonie Smith MD at 12:53 EDT , Treatment and Re-Evaluation :: Patient appears generally well, patient appears nontoxic, vital signs are stable. Patient presents to the emergency department for complaints of weakness, generalized fatigue over the last month. Patient also had low-grade fever the last 24 to 48 hours. Patient will receive some basic laboratory values including a chest x-ray, urinalysis. This to be rule out a urinary tract infection, pyelonephritis, pneumonia. Patient will receive a rapid COVID, influenza concerning for any viral-like infection. Patient will also receive cortisol as well as thyroid stimulating hormone. Patient laboratory values show a normal CBC, patient's chemistries show slight sodium 132, creatinine is 1.24, this is slightly elevated, patient also has not been eating or drinking normal as well as had nausea and vomiting. Patient's normally 1.0 or below. Patient's calcium is 7.7, she was eleven 1 week ago before she received an infusion to decrease it. Patient's TSH is 0.18 which is consistent, patient can talk to her PCP regarding cutting back on her levothyroxine dose. Patient's cortisol level was 25.2, patient is currently on hydrocortisone. At this time, patient's chest x-ray was unremarkable, no acute evidence of any pneumonia, effusions. COVID-19 influenza were negative. Patient continues to follow-up with her PCP as well as oncology. At this time there is no evidence of any acute process. This has been going on for 1 month. She instructed to maintain hydration, she will be given Zofran for home to decrease her nausea as well as to increase her appetite. She will maintain hydration. Given strict return precaution. Patient stable for discharge Discharge Plan Triage Chief Complaint: Fever ED Midlevel Provider: Francisco Bowen ED Provider: Lindsay Juarez Dx/Rx/DC Orders Clinical Impression: Acute dehydration, Fatigue Instructions: ED Dehydration (Adult) Prescriptions: New ondansetron 4 mg tablet,disintegrating 4 mg PO Q8H PRN PRN (Reason: Nausea) Qty: 10 0RF No Action Zyrtec 10 MG capsule 1 tab PO QHS levothyroxine 50 mcg Tablet 100 mcg PO DAILY ferrous sulfate [iron] 325 mg (65 mg iron) Tablet 325 mg PO QHS multivitamin Capsule 1 cap PO QHS fluticasone propionate [Flonase Allergy Relief] 50 mcg/actuation [place],Suspension 1 spray INTRANASAL BID PRN PRN (Reason: ALLERGIES) ondansetron 4 mg tablet,disintegrating 8 mg Q8H PRN PRN (Reason: Nausea And Vomiting) Patient Comments: Take 2 tablets by mouth every 8 hours as needed for nausea/vomiting. pantoprazole [Protonix] 40 mg tablet,delayed release (DR/EC) 40 mg PO DAILY Qty: 30 0RF Primary Care Provider: Samara Butt NP Referrals: Samara Butt NP, [employer] [Primary Care Provider] - Activity Restrictions/Additional Instructions: Please continue to follow-up, return for any worsening symptoms. Disposition Disposition: Home, Self Care
[2023-02-23 12:27] LABS: Absolute Lymphocyte Count 5.61 X10^3/uL (0.83-4.51); Absolute Neutrophil Count 2.9 X10^3/uL (2.0-7.7); Basophil# 0.11 X10^3/uL; Eosinophil# 0.09 X10^3/uL; Eosinophils% 0.8 % (0-5); Hematocrit 39.7 % (37-47); Hemoglobin 12.8 g/dL (12.0-15.0); Lymphocyte # 5.61 X10^3/ul (0.83-4.51); Lymphocyte % 52.1 % (19-41); Mean Corp Hgb Conc 32.2 g/dL (32-36); Mean Corpuscular Hgb 25.8 pg (27.0-32.0); Mean Corpuscular Volume 79.9 fL (81-99); Mean Platelet Vol. 9.8 fl (6.2-12.0); Monocyte# 2.02 X10^3/uL; Monocyte% 18.8 % (0-10); NRBC Flagged by Analyzer 0 % (0-5); POSITIVE DIFFERENTIAL YES; POSITIVE MORPHOLOGY YES; Platelet Count 267 K/mm3 (150-450); RBC Distribution Width CV 15.7 % (11.6-14.6); RBC Distribution Width SD 44.8 fl (35.1-43.9); Red Blood Count 4.97 M/mm3 (4.2-5.4); White Blood Count 10.8 K/mm3 (4.4-11.0)
[2023-02-23 12:29] LABS: Differential Indicated SCAN CRITERIA MET
[2023-02-23 12:47] LABS: Anion Gap 6 (5-15); BUN 28 mg/dL (7-18); BUN/Creat Ratio 22.6 RATIO (10-20); Calcium,Total 7.7 mg/dL (8.5-10.1); Chloride 101 mmol/L (98-107); Creatinine, Serum 1.24 mg/dL (0.55-1.02); EST Glomerular Filtration Rate 47 mL/min (>60); Est Glom Filt Rate - Afr Amer 57 mL/min (>60); Estimated Creatinine Clearance 43.41 ml/min; Glucose 95 mg/dL (74-106); Potassium 3.8 mmol/L (3.5-5.1); Sodium Level 132 mmol/L (136-145); Thyroid Stim Hormone (TSH) 0.18 uIU/mL (0.358-3.74)
[2023-02-23] MEDS: 0.9% Normal Saline 1,000 ML 1000 ML IV (12:50)
[2023-02-23 12:58] LABS: Mucous, Urine 0 SEEN /hpf (<or=2+); Red Blood Cells-Urine 0 SEEN /hpf (0-5)
[2023-02-23 12:58] LABS: Differential Comment SCANNED
[2023-02-23 13:01] LABS: Color, Urine Yellow (Yellow); Glucose, Dipstick Normal (Normal); Ketone-Dipstick Negative (Negative); Leukocyte Esterase-Dipstick 25 /ul (Negative); Nitrite-Dipstick Negative (Negative); Occult Blood-Urine 10 /ul (Negative); Protein-Dipstick 30 mg/dl (Negative); Urine Bilirubin Dipstick Negative (Negative); Urine Clarity Clear (Clear); Urine Urobilinogen Normal (Normal)
[2023-02-23 13:16] LABS: Squamous Epithelial Cells - UA 0-5 SEEN /hpf (5-10); White Blood Cells 0-5 SEEN /hpf (0-5)
[2023-02-23 13:17] LABS: Bacteria RARE /hpf (None Seen)
[2023-02-23 13:49] VITALS: BP 98/54; PULSE 88; RESP 16; TEMP 36.5; O2SAT 94
== END 2023-02-23 14:04 | disposition home or self-care (01) ==
PROVIDERS: Nurse Practitioner; Emergency Provider Emergency Medicine; PCP Nurse Practitioner Primary Care; Visit Provider Emergency Medicine
DX: E86.0 Dehydration (principal); R53.83 Other fatigue; R50.9 Fever, unspecified
CPT/HCPCS: 71046; 80048; 81001; 82533; 84443; 85025; 87428; 99283; J7030; A4216

== ENCOUNTER → 2023-04-16 | Outpatient (CLI) | payer OTHER, SELFPAY ==
--- NOTE | 2023-04-16 09:16 | RAD_ITS ---
INDICATION: LEFT SHOULDER CONTUSION EXAMINATION/TECHNIQUE: X-RAY - LEFT XR Scapula 2 VIEWS COMPARISON: No relevant prior comparison study available FINDINGS: SOFT TISSUES: No soft tissue swelling or gas. No radiopaque foreign body. BONES/JOINTS: Diffuse somewhat suboptimal. No demonstrated acute fracture. Normal alignment. Preservation of the joint space.. No sclerotic or destructive changes observed. RAD/Scapula IMPRESSION: No evidence of acute fracture of the scapula. Electronically Signed: Blair Chahal MD at 9:57 EDT ,
== END | disposition home or self-care (01) ==
PROVIDERS: PCP Nurse Practitioner Primary Care; Referring Provider Emergency Medicine; Visit Provider Emergency Medicine
DX: S40.012A Contusion of left shoulder, initial encounter (principal)
CPT/HCPCS: 73010

== ENCOUNTER → 2023-04-22 | Outpatient (CLI) | payer OTHER, SELFPAY ==
--- NOTE | 2023-04-22 14:32 | VDLE_ITS ---
Reason For Study: Right leg swelling RIGHT LEFT GSV is normal. CFV is compressible, spontaneous, phasic, CFV is compressible, spontaneous, phasic, competent, and demonstrates normal competent and demonstrates normal augmentation. augmentation. FV is compressible, spontaneous, phasic, competent and demonstrates normal augmentation. POP V is compressible, spontaneous, phasic, competent and demonstrates normal augmentation. T/P Trunk is compressible. PTV is compressible. RT PerV is compressible. Multiple vascularized lymph nodes noted in the right groin. Procedure This is a venous duplex using B-mode, color flow and spectral Doppler. Exam performed in department. Patient states she is having surgery to have lymph nodes removed from right groin. A preliminary report was called and/or faxed to Dr. De Souza. VL/Venous Duplex US, Unilateral Interpretation Summary Deep veins of the right lower extremity are patent and compressible segmentally . There is no evidence of right lower extremity deep vein thrombosis. The right great sapheno us vein appears patent and compressible segmentally. Multiple vascularized right inguinal lymph nodes noted Ordering Physician: Francisco De Souza Referring Physician: Samara Butt Performed By: Su Nguyen RVT
== END | disposition home or self-care (01) ==
PROVIDERS: PCP Nurse Practitioner Primary Care; Referring Provider Internal Medicine Hematology & Oncology; Visit Provider Internal Medicine Hematology & Oncology
DX: C43.71 Malignant melanoma of right lower limb, including hip (principal); M79.89 Other specified soft tissue disorders
CPT/HCPCS: 93971

== ENCOUNTER 2023-05-31 16:31 | Emergency (ER) | payer OTHER, SELFPAY ==
[2023-05-31 16:33] VITALS: BP 119/67; PULSE 67; RESP 16; TEMP 36.8; O2SAT 99; BMI 33.5
--- NOTE | 2023-05-31 17:28 | EDS_ITS ---
HPI History of Present Illness Chief Complaint: Lower Extremity Injury Informant: patient Narrative Narrative: Patient presents secondary to right leg pain. She was sent over by Dr. De Souza for evaluation to rule out DVT. Patient has a history of melanoma and had right groin lymph nodes removed on May 17. She states she is noted increased pain over the last day or 2. Patient states that she had numbness in her right leg since the surgery. Last night she had pain in the medial portion of her right knee and around her surgical site. She denies chest pain or shortness of breath. No history of blood clots. [facility] Medical History Alcohol use Cancer Injury of back Low iron Non-smoker Thyroid disease Home Medications cetirizine 10 mg capsule (Zyrtec) 1 tab PO QHS Allergies 12/15/18 [History Last Taken 04/09/22] fluticasone propionate 50 mcg/actuation nasal spray,suspension (Flonase Allergy Relief) 1 spray intranasal BID PRN PRN ALLERGIES 10/24/21 [History Last Taken Unknown] multivitamin 1 cap PO QHS Check with primary doctor 10/24/21 [History Last Taken 04/09/22] pantoprazole 40 mg tablet,delayed release (Protonix) 40 mg PO DAILY #30 tabs 04/12/22 [Rx Last Taken Unknown] ondansetron 4 mg disintegrating tablet 4 mg PO Q8H PRN PRN Nausea #10 tabs 02/23/23 [Rx Last Taken Unknown] hydrocortisone 10 mg tablet 10 mg PO Q12H 05/31/23 [History Last Taken Unknown] levothyroxine 200 mcg tablet 200 mcg PO DAILY 05/31/23 [History Last Taken Unknown] sucralfate 1 gram tablet 1 g PO Q6H 05/31/23 [History Last Taken Unknown] Allergy/AdvReac Type Severity Reaction Status Date / Time Environmental Allergies: AdvReac Other Verified 04/10/22 10:25 Uncoded [hay fever] Surgical History Hx of colonoscopy Hx of melanoma excision Hx of tonsillectomy Social History household members: spouse housing: house Smoking Status: Never smoker ROS ROS ED Constitutional Constitutional ED: Denies chills or fever(s) Eyes Eyes: Denies discharge from eye(s) ENT ENT ED: Denies discharge from eye(s), rhinorrhea or sore throat Cardiovascular Cardiovascular: Denies chest pain or palpitations Respiratory/Chest Respiratory/Chest: Denies cough or dyspnea Gastrointestinal Gastrointestinal: Denies abdominal pain, nausea or vomiting Musculoskeletal Musculoskeletal: Reports extremity pain; Denies back pain Integumentary Denies Abrasions or rash Neurologic Neurologic: Reports paresthesias; Denies headache(s) or weakness Psychiatric Psychiatric: Denies anxiety or depression Allergic/Immunologic Allergic/Immunologic ED: Denies lip swelling or urticaria EXAM Physical Exam Const Vital Signs: 05/31/23 16:33 05/31/23 19:33 Temperature 98.3 F Temperature Source Oral Pulse Rate 67 65 Respiratory Rate 16 16 Blood Pressure 119/67 96/49 L Blood Pressure Mean 84 64 Pulse Ox 99 98 Oxygen Delivery Method Room Air Room Air Positive well nourished and well developed General Appearance ED: well developed HEENT Reports moist mucous membranes Eyes EOMs intact bilaterally Chest Wall inspection of chest normal and palpation of chest normal Resp normal respiratory effort and clear to auscultation bilaterally Cardio regular rate and regular rhythm GI non-tender Palpation: soft Extremity Extremity Narrative: Firm hematoma palpated to the right groin with [address] No evidence of erythema or sign of cellulitis. Small surgical wound noted to the posterior right calf with no tenderness. No significant leg edema. Equal pulses bilaterally. Neuro oriented x3 Psych mental status grossly normal MDM MDM MDM Narrative Medical decision making narrative: Right lower extremity venous ultrasound obtained to evaluate for DVT. I received a phone call from the [employer] stating that the patient has no evidence of DVT. She does not see a large hematoma around the surgical site, but states she does have some local inflammation. Test results discussed with patient with reassurance. Return instructions provided. Discharge Plan Triage Chief Complaint: Lower Extremity Injury ED Provider: Lindsay Juarez Dx/Rx/DC Orders Clinical Impression: Leg pain, right, Post-op pain Instructions: ED Post Op Wound Check, Pain Prescriptions: No Action Zyrtec 10 MG capsule 1 tab PO QHS multivitamin Capsule 1 cap PO QHS fluticasone propionate [Flonase Allergy Relief] 50 mcg/actuation [place],Suspension 1 spray INTRANASAL BID PRN PRN (Reason: ALLERGIES) pantoprazole [Protonix] 40 mg tablet,delayed release (DR/EC) 40 mg PO DAILY Qty: 30 0RF ondansetron 4 mg tablet,disintegrating 4 mg PO Q8H PRN PRN (Reason: Nausea) Qty: 10 0RF sucralfate 1 gram tablet 1 g PO Q6H Patient Comments: take 1 tablet by mouth four times a day MIX WITH A LITTLE WATER TO MAKE A SLURRY levothyroxine 200 mcg tablet 200 mcg PO DAILY Patient Comments: TAKE ONE TABLET BY MOUTH FROM SATURDAY TO SATURDAY. DOES NOT TAKE SATURDAY, SATURDAY AND SATURDAY. hydrocortisone 10 mg tablet 10 mg PO Q12H Patient Comments: take 1 tablet by mouth every morning and 0.5 tablets every AFTERNOON Primary Care Provider: Samara Butt NP Referrals: PodSamara amor NP, [employer]OR-C [Primary Care Provider] - 3-5 Days if not improving Activity Restrictions/Additional Instructions: Your ultrasound tonight reveals no evidence of DVT. Please continue to monitor your symptoms. Follow-up with your surgeon next week as scheduled. Disposition Disposition: Home, Self Care
--- NOTE | 2023-05-31 18:01 | US_ITS ---
STUDY: VENOUS DOPPLER ULTRASOUND - RIGHT LOWER EXTREMITY REASON FOR EXAM: Female, 58 years old. RIGHT LEG PAIN/ SWELLING TECHNIQUE: Ultrasound evaluation of the deep vein system to include monet-scale imaging and compression was performed. Monet-scale imaging and Doppler sonographic evaluation, including duplex spectral analysis and qualitative color flow sonography, was performed. COMPARISON: None. FINDINGS: Common Femoral Vein: Normal compression, spontaneity and augmentation. Normal color Doppler. Common Femoral Vein/Greater Saphenous Junction: Normal compression, spontaneity and augmentation. Normal color Doppler. Deep Femoral Vein: Normal compression, spontaneity and augmentation. Normal color Doppler. Femoral Proximal: Normal compression, spontaneity and augmentation. Normal color Doppler. Femoral Middle: Normal compression, spontaneity and augmentation. Normal color Doppler. Femoral Distal: Normal compression, spontaneity and augmentation. Normal color Doppler. Popliteal Vein: Normal compression, spontaneity and augmentation. Normal color Doppler. Posterior Tibial Vein: Normal compression, spontaneity and augmentation. Normal color Doppler. Peroneal Vein: Normal compression, spontaneity and augmentation. Normal color Doppler.
[2023-05-31 19:33] VITALS: BP 96/49; PULSE 65; RESP 16; O2SAT 98
== END 2023-05-31 19:41 | disposition home or self-care (01) ==
PROVIDERS: Emergency Provider Emergency Medicine; PCP Nurse Practitioner Primary Care; Visit Provider Emergency Medicine
DX: M79.604 Pain in right leg (principal); G89.18 Other acute postprocedural pain; E07.9 Disorder of thyroid, unspecified; Z79.899 Other long term (current) drug therapy
CPT/HCPCS: 93971; 99282

== ENCOUNTER 2023-06-17 18:57 | Emergency (ER) | payer OTHER, SELFPAY ==
[2023-06-17 18:58] VITALS: BP 125/48; PULSE 80; RESP 16; TEMP 37.2; O2SAT 100; BMI 34.7
--- NOTE | 2023-06-17 19:18 | CT_ITS ---
INDICATION: epigastric and RUQ pain EXAMINATION: CT ABDOMEN AND PELVIS WITH CONTRAST - CT Abdomen And Pelvis W/ Contrast Injection TECHNIQUE: Helically acquired images were obtained of the abdomen and pelvis following IV contrast. A radiation dose optimization technique was used for this scan. IV Contrast dosage and agent: 100 mL of Isovue-370. Oral contrast: None. CTDI volume of 19.25 mGy. DLP of 1245.36 mGy*cm. COMPARISON: PET CT October 02, 2022. FINDINGS: LOWER CHEST: Lung bases are clear. No cardiomegaly or pericardial effusion. LIVER: Homogeneous. No focal mass. GALLBLADDER AND BILIARY TREE: No calcified gallstones. No gallbladder distension or wall edema. No intra- or extrahepatic biliary ductal dilation. PANCREAS: No focal cystic or solid mass. SPLEEN: Normal size without focal cystic or solid mass. ADRENAL GLANDS: No nodules. KIDNEYS, URETERS and BLADDER: Normal renal size and position. No mass. No hydronephrosis. Bladder is unremarkable. PERITONEUM: No ascites or free air. No other fluid collection. BOWEL: No evidence of acute appendicitis. No abnormally distended bowel loops or air fluid levels. No wall thickening or mass. No focal inflammatory changes. LYMPH NODES: No enlarged mesenteric or retroperitoneal lymph nodes. VESSELS: Aorta is non-dilated. REPRODUCTIVE ORGANS: Heterogeneous fibroid uterus without enlargement. Ovaries are within normal limits. ABDOMINAL WALL: Supraumbilical midline fascial defect, 6 mm in diameter with overlying 3 cm fat filled hernia sac. Right anterior abdominal wall inguinal region focal fluid collection showing homogenous fluid density, measures 6.5 cm in width, 4.2 cm in thickness almost 20 cm in craniocaudal dimension. This is suspected represent a postoperative seroma with surgical clips overlying the lesion. This is likely palpable. BONES: No lytic or blastic abnormality. Moderate bilateral facet arthropathy lower lumbar spine. Mild central spinal canal stenosis L3-4 and L4-[address]/Abdomen/Pelvis W IV Cont ONLY IMPRESSION: No acute intra-abdominal pathology. Supraumbilical midline fascial defect, 6 mm, with overlying 3 cm fat filled hernia sac. Large, roughly 6.5 x 4.2 x 20 cm focal fluid collection right lower quadrant anterior abdominal wall with overlying surgical clips suggesting possible seroma. Correlate clinically for evidence of infection. Electronically Signed: Chan Farley DO at 21:42 EST ,
--- NOTE | 2023-06-17 19:23 | EDS_ITS ---
HPI HPI - GI History of Present Illness Chief Complaint: Abd Pain Informant: patient and spouse/S.O. Narrative Narrative: Presents with upper abdominal pain. Patient states that this really just started in the last hour. Epigastric and a little bit right upper quadrant. It does not radiate to the back. She was transiently nauseated at home but not now. No vomiting. No diarrhea or constipation. No urinary symptoms. She has not had any intra-abdominal surgeries. She still has her gallbladder. She did have an episode of pancreatitis but this is when she was on immunotherapy for melanoma. She was diagnosed with a metastatic melanoma about 2 years ago on her right calf. She had part of this removed and some lymph nodes. She just had a another part removed and lymph nodes done about a month ago. Those areas are doing fine. She had 5 out of about 15 lymph nodes that had some melanoma but it was contained within them. There has been no distant metastatic spread that is known. She does not drink alcohol. She is on increased dose of steroids. 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 She is off that immunotherapy now. Because she had surgery and then she got COVID, they did bump her cortisone up and she is on a higher dose for the last 2 weeks. They are going to plan to start tapering this about 2 weeks from now. [facility] Medical History Alcohol use Cancer Injury of back Low iron Non-smoker Thyroid disease Home Medications cetirizine 10 mg capsule (Zyrtec) 1 tab PO QHS Allergies 12/15/18 [History Last Taken 04/09/22] fluticasone propionate 50 mcg/actuation nasal spray,suspension (Flonase Allergy Relief) 1 spray intranasal BID PRN PRN ALLERGIES 10/24/21 [History Last Taken Unknown] multivitamin 1 cap PO QHS Check with primary doctor 10/24/21 [History Last Taken 04/09/22] pantoprazole 40 mg tablet,delayed release (Protonix) 40 mg PO DAILY #30 tabs 04/12/22 [Rx Last Taken Unknown] ondansetron 4 mg disintegrating tablet 4 mg PO Q8H PRN PRN Nausea #10 tabs 02/23/23 [Rx Last Taken Unknown] hydrocortisone 10 mg tablet 10 mg PO Q12H 05/31/23 [History Last Taken Unknown] levothyroxine 200 mcg tablet 200 mcg PO DAILY 05/31/23 [History Last Taken Unknown] sucralfate 1 gram tablet 1 g PO Q6H 05/31/23 [History Last Taken Unknown] dicyclomine 20 mg tablet 20 mg PO TID PRN abdominal pain #14 tabs 06/17/23 [Rx Last Taken Unknown] fludrocortisone 0.1 mg tablet 0.1 mg PO DAILY 06/17/23 [History Last Taken Unknown] Allergy/AdvReac Type Severity Reaction Status Date / Time No Known Allergies Allergy Verified 06/17/23 18:58 Surgical History Hx of colonoscopy Hx of melanoma excision Hx of tonsillectomy Social History household members: spouse housing: house Smoking Status: Never smoker ROS ROS ED ROS Narrative A complete review of systems was performed and is negative except as documented in the history of present illness. Some specific details below. Constitutional: No recent fevers or chills. He felt fine until about 6 PM this evening. EYE: No visual complaints or pain. ENT: No difficulty swallowing. No swelling. No pain. CV: No chest pain or palpitations. Respiratory: No dyspnea. No hemoptysis. No difficulty taking breaths. GI: Please see history of present illness. : No frequency dysuria or hematuria. Musculoskeletal: No recent trauma. No pains. Skin: No rash. Nondiaphoretic. Neuro: No weakness or numbness. Endocrine: No polyuria or polydipsia. EXAM Physical Exam Narrative Exam Narrative: CONSTITUTIONAL: Patient is nontoxic in appearance. The patient looks comfortable. HEENT: No notable trauma. Mucous membranes normally dry. EYES: No conjunctival injection. No proptosis. CARDIOVASCULAR: Regular rate. Regular rhythm. No notable murmur. No JVD. RESPIRATORY: No respiratory distress. Breathing is unlabored. No wheezes. No rhonchi. No rales. No pain with a deep breath. GASTROINTESTINAL: Not distended. Bowel sounds are normal. Does have some tenderness both epigastric and right upper quadrant. But no rebound or guarding. GENITOURINARY: No tenderness over the bladder. No CVA tenderness or side.. MUSCULOSKELETAL: Atraumatic. No peripheral edema. No cord. Healed area in the back of the calf. NEUROLOGICAL: Patient is alert and appropriate. No focal deficit noted. SKIN: No noted rashes. No diaphoresis. PSYCHIATRIC: Patient is calm. Mood is appropriate. Const Vital Signs: 06/17/23 18:58 Temperature 98.9 F Temperature Source Temporal Pulse Rate 80 Respiratory Rate 16 Blood Pressure 125/48 H Blood Pressure Mean 73 Pulse Ox 100 Oxygen Delivery Method Room Air MDM MDM MDM Narrative Medical decision making narrative: Been interpretation of the patient's CT of the abdomen shows normal gallbladder pancreas no free air. No obstruction or ileus. There is fluid collection down near her surgery in the right inguinal region but she is not hurting there. Final reading is similar. Patient CBC shows minimally low hemoglobin at 10.8. The white count platelets are normal. Patient's electrolytes show no marked abnormalities. She does have a slight rise of her BUN and creatinine. She did receive IV fluids here. Liver function test are normal. Patient's lipase is normal Patient's urine is normal. I talked with patient. She does state that today she ate some chili. She also ate a tater tot casserole. When she was told the ingredients and how she was made she stopped eating because she knows that would upset her stomach. She also states occasionally she has got soreness in the epigastric range. She is on sucralfate as well as pantoprazole. This is likely due to her chronic steroid use. She is also had a bump of her steroids for over 2 weeks now. This may be contributing to a little bit of baseline gastritis. I am not seeing any sign of acute biliary issues. No free air. She is not vomiting any blood or vomiting. I do not think we need to keep her in the hospital. She is feeling better. I will give her another dose of pantoprazole IV. We will try Bentyl. She already has some Zofran at home if she needs this for nausea. She will contact her physician to see if there is any way they could decrease her steroid sooner as I think this might help her abdomen. But there are certainly significant other concerns also to consider with her steroid dosing. I also further exam that area in the right inguinal region. It is completely nontender. This is not the source of her symptoms. She evidently had the drain pulled not long ago and was told that it will take a while for the fluid to reabsorb. Lab Data Attestation: I reviewed the patient's lab results. Labs: Laboratory Results - last 24 hr 06/17/23 06/17/23 19:45 19:57 WBC 10.8 RBC 3.96 L Hgb 10.8 L Hct 34.1 L MCV 86.1 MCH 27.3 MCHC 31.7 L RDW Std Deviation 46.9 H RDW Coeff of Shailesh 14.7 H Plt Count 364 MPV 9.1 Immature Gran % (Auto) 0.300 Neut % (Auto) 50.7 Lymph % (Auto) 38.6 [place] % (Auto) 7.7 Eos % (Auto) 1.6 Baso % (Auto) 1.1 H Absolute Neuts (auto) 5.5 Absolute Lymphs (auto) 4.18 Nucleated RBC % 0 Sodium 138 Potassium 4.1 Chloride 106 Carbon Dioxide 26.0 Anion Gap 6 BUN 25 H Creatinine 1.04 H Estim Creat Clear Calc 49.67 Est GFR (MDRD) Af Amer 69 Est GFR (MDRD) Non-Af 57 L BUN/Creatinine Ratio 24.0 H Glucose 108 H Calcium 9.8 Total Bilirubin 0.20 AST 12 L ALT 17 Alkaline Phosphatase 87 Total Protein 7.0 Albumin 3.3 Globulin 3.7 Albumin/Globulin Ratio 0.9 Lipase 16 Urine Color Yellow Urine Clarity Clear Urine pH 6.0 Ur Specific [place] 1.010 Urine Protein Negative Urine Glucose (UA) Normal Urine Ketones Negative Urine Occult Blood Negative Urine Nitrite Negative Urine Bilirubin Negative Urine Urobilinogen Normal Ur Leukocyte Esterase 25 H Urine RBC 0 SEEN Urine WBC 0 SEEN Ur Squamous Epith Cells 0-5 SEEN Urine Bacteria 0 SEEN Urine Mucus 0 SEEN Radiography Diagnostic Testing: Clinical Impression(s) from Imaging Studies Abdomen/Pelvis CT 06/17/23 19:18 IMPRESSION: No acute intra-abdominal pathology. Supraumbilical midline fascial defect, 6 mm, with overlying 3 cm fat filled hernia sac. Large, roughly 6.5 x 4.2 x 20 cm focal fluid collection right lower quadrant anterior abdominal wall with overlying surgical clips suggesting possible seroma. Correlate clinically for evidence of infection. Electronically Signed: Chan Farley DO at 21:42 EST , Discharge Plan Triage Chief Complaint: Abd Pain ED Provider: Nader Lopez Dx/Rx/DC Orders Clinical Impression: Acute epigastric pain Instructions: ED Epigastric Pain Uncertain Cause Prescriptions: New dicyclomine 20 mg tablet 20 mg PO TID PRN (Reason: abdominal pain) Qty: 14 0RF No Action Zyrtec 10 MG capsule 1 tab PO QHS multivitamin Capsule 1 cap PO QHS fluticasone propionate [Flonase Allergy Relief] 50 mcg/actuation [place],Suspension 1 spray INTRANASAL BID PRN PRN (Reason: ALLERGIES) pantoprazole [Protonix] 40 mg tablet,delayed release (DR/EC) 40 mg PO DAILY Qty: 30 0RF ondansetron 4 mg tablet,disintegrating 4 mg PO Q8H PRN PRN (Reason: Nausea) Qty: 10 0RF sucralfate 1 gram tablet 1 g PO Q6H Patient Comments: take 1 tablet by mouth four times a day MIX WITH A LITTLE WATER TO MAKE A SLURRY levothyroxine 200 mcg tablet 200 mcg PO DAILY Patient Comments: TAKE ONE TABLET BY MOUTH FROM SATURDAY TO SATURDAY. DOES NOT TAKE SATURDAY, SATURDAY AND SATURDAY. hydrocortisone 10 mg tablet 10 mg PO Q12H Patient Comments: take 1 tablet by mouth every morning and 0.5 tablets every AFTERNOON fludrocortisone 0.1 mg tablet 0.1 mg PO DAILY Patient Comments: take 1/2 tablet by mouth once daily Primary Care Provider: Samara Butt NP Referrals: Samara Butt NP, [facility] [employer] [facility] [Primary Care Provider] - 1-2 Days if not improving Disposition Disposition: Home, Self Care Discharge Date/Time: 06/18/23 00:47
[2023-06-17 19:52] LABS: Absolute Lymphocyte Count 4.18 X10^3/uL (0.83-4.51); Absolute Neutrophil Count 5.5 X10^3/uL (2.0-7.7); Basophil# 0.12 X10^3/uL; Basophil% 1.1 % (0-1); Eosinophil# 0.17 X10^3/uL; Eosinophils% 1.6 % (0-5); Hematocrit 34.1 % (37-47); Hemoglobin 10.8 g/dL (12.0-15.0); Lymphocyte # 4.18 X10^3/ul (0.83-4.51); Lymphocyte % 38.6 % (19-41); Mean Corp Hgb Conc 31.7 g/dL (32-36); Mean Corpuscular Hgb 27.3 pg (27.0-32.0); Mean Corpuscular Volume 86.1 fL (81-99); Mean Platelet Vol. 9.1 fl (6.2-12.0); Monocyte# 0.83 X10^3/uL; Monocyte% 7.7 % (0-10); NRBC Flagged by Analyzer 0 % (0-5); Neutrophil # 5.51 X10^3/uL (2.7-7.7); Neutrophil % 50.7 % (47-70); Platelet Count 364 K/mm3 (150-450); RBC Distribution Width CV 14.7 % (11.6-14.6); RBC Distribution Width SD 46.9 fl (35.1-43.9); Red Blood Count 3.96 M/mm3 (4.2-5.4); White Blood Count 10.8 K/mm3 (4.4-11.0)
[2023-06-17] MEDS: Ondansetron 4 MG/2 ML Vial IV (19:52)
[2023-06-17] MEDS: 0.9% Normal Saline (1000mL) 1,000 ML 1000 ML IV (19:52)
[2023-06-17] MEDS: Morphine 4 MG/ML Syringe IV (19:52)
[2023-06-17 20:03] LABS: Bacteria 0 SEEN /hpf (None Seen); Mucous, Urine 0 SEEN /hpf (<or=2+); Red Blood Cells-Urine 0 SEEN /hpf (0-5); White Blood Cells 0 SEEN /hpf (0-5)
[2023-06-17 20:11] LABS: Color, Urine Yellow (Yellow); Glucose, Dipstick Normal (Normal); Ketone-Dipstick Negative (Negative); Leukocyte Esterase-Dipstick 25 /ul (Negative); Nitrite-Dipstick Negative (Negative); Occult Blood-Urine Negative /ul (Negative); Protein-Dipstick Negative (Negative); Urine Bilirubin Dipstick Negative (Negative); Urine Clarity Clear (Clear); Urine Urobilinogen Normal (Normal)
[2023-06-17 20:15] LABS: ALB/GLOB Ratio 0.9 RATIO (0.9-2.4); AST(SGOT) 12 U/L (15-37); Alanine Aminotransfer ALT/SGPT 17 U/L (13-56); Albumin, Serum 3.3 g/dL (3.2-5.0); Alkaline Phosphatase 87 U/L (45-117); Anion Gap 6 (5-15); BUN 25 mg/dL (7-18); Calcium,Total 9.8 mg/dL (8.5-10.1); Chloride 106 mmol/L (98-107); Creatinine, Serum 1.04 mg/dL (0.55-1.02); EST Glomerular Filtration Rate 57 mL/min (>60); Est Glom Filt Rate - Afr Amer 69 mL/min (>60); Estimated Creatinine Clearance 49.67 ml/min; Globulin 3.7 g/dL (2.2-4.2); Glucose 108 mg/dL (74-106); Lipase 16 U/L (13-75); Potassium 4.1 mmol/L (3.5-5.1); Sodium Level 138 mmol/L (136-145)
[2023-06-17 20:17] LABS: Squamous Epithelial Cells - UA 0-5 SEEN /hpf (5-10)
[2023-06-17] MEDS: Pantoprazole Sodium 80 MG in 0.9% Normal Saline (50mL Bag) 15 ML 420 MG IV BOLUS (23:45)
== END 2023-06-18 00:47 | disposition home or self-care (01) ==
PROVIDERS: Emergency Provider Emergency Medicine; PCP Nurse Practitioner Primary Care; Visit Provider Emergency Medicine
DX: R10.13 Epigastric pain (principal); E07.9 Disorder of thyroid, unspecified; Z79.899 Other long term (current) drug therapy
CPT/HCPCS: 74177; 80053; 81001; 83690; 85025; 96361; 96374; 96375; 99283; J7030; Q9967; A4216; J2405; J3490

== ENCOUNTER 2024-02-12 08:19 | Outpatient (RCR) | payer OTHER, SELFPAY ==
--- NOTE | 2024-02-26 13:48 | HP.OTEVAL ---
Patient's Visit Information Visit Information Visit Information: KAY DO is a 59 year old F, referred to Occupational Therapy by Dr. Lenny Alexandre MD, with a diagnosis of lymphedema. Date of Evaluation: 02/12/24 Occupational Therapist: Renate David, TERESE/[place], CHT Subjective Subjective: This 59 year old female was seen for OT eval with dx of Melanoma dx of 2021 this removed along with 3 lymph nodes 1 positive. lymph node removed 2022 ( all lymph nodes 30+ 5 were positive) pt went through PT and 2nd week of December- went for another sx January 23 for more lymph node removal- pt has been through PT for compression socks- using thigh high unsure of compression class. Pt states the Physical therapist she worked with did do the manual lymph drainage massage. States she did give her some exercise as well. pt had increase swelling when she went back to work Feb.02. pt states she feels she tolerates the thigh high compression socks well. States she has difficulty touching the scar at her thigh ( feels different) Pt would like to know what more she can do to help support her circulation and improve her strength. Pain right thigh /groin: Current Pain Intensity: 4 Pain Intensity Range: 1, 3 and 6 Lymphedema (Circumferential Measure) Mid-foot: right 23.5 left 23.5cm Ankle: right 35 left 25 Lower calf: right 45 left 35.5cm Largest calf: right 45 left 44.5 Below knee: right 43 left 40cm Above knee: right 52 left 47 Mid-thigh: right 67 left 62 Groin: right 70 left 58 Lower Limb Functional Index Lower Extremity Functional Score: 27 Goals Goal: Patient will demonstrate a 20% reduction in edema by discharge: Yes Goal: Patient will demonstrate adequate knowledge of self-massage by the end of the second week.: Yes Goal: Patient will demonstrate adequate knowledge of skin care and precautions by the end of the first week.: Yes Goal: Patient will demonstrate adequate knowledge of therapeutic exercises by discharge.: Yes Goal: Patient will select an appropriate compression garment and demonstrate adequate knowledge of correct donning technique, care and wearing schedule by discharge.: Yes Goal: Patient will voice understanding of need to replace compression garment every four to six months by discharge.: Yes Rehabilitation General Assessment: pt demo with stage II lymphedema and demo need for skilled OT services 2-4 visits to ensure pts understanding of life long mtg of lymphedema. (Pt has 60 OT/PT therapy sessions approved maximally per calendar year, feels she had more than 30 therapy sessions already but will call and check on that) This therapist will see pt for lymphedema ed. on life long mtg. ed. pt on self manual lymph massage, lymph exercises as well as beneficial ex (ie aquatic classes) Therapist will have pts spouse attend session so he can learn to provide support to Kay as well. PT was ed. on need of compression garments every 4-6 months and skin care- this therapist rec'd use of electric razer vs straight razer to avoid risk of skin injury due to high risk of infection. pt demo understanding and agree to POC. Due to concerns with groin pain and weakness pt would benefit from skilled PT services in the pool to assist with strengthening and pain mtg. pt receptive to this POC. Recd'd flexitouch with trunk to assist pt in mtg. of her lymphedema. pt was given information and is receptive. Rehabilitation Potential: Good Anticipated Interventions Anticipated Interventions: Education re assistive Equipment, Education re Diagnosis, Education re Life-long lymphedema Management, Education re Skin Care and Precautions, Education re Self Massage Techniques, Education re Correct Donning Tech,Care&Wearing Sched Comp Garments, Caregiver Training and Home Program Visit Plan Frequency: 1-2x /Week Duration: 2 Weeks TEXT: Thank you for the opportunity to evaluate your patient. For Medicare and Medicare HMO plans, please review the plan of care and approve it. It will need to be FAXED BACK to us at [phone] for Medicare purposes. Please let me know if there are questions or concerns regarding this plan of care. Physician Signature: Date:
== END 2024-02-12 19:00 | disposition home or self-care (01) ==
LOC: OT 08:19
PROVIDERS: PCP Nurse Practitioner Primary Care; Referring Provider Surgery Surgical Oncology; Visit Provider Surgery Surgical Oncology
DX: I89.0 Lymphedema, not elsewhere classified (principal)
CPT/HCPCS: 97166; 97530